=== PATIENT | female | born 1995 | race Caucasian/White ===

== ENCOUNTER 2016-12-08 14:11 | Emergency (ER) | payer BC, OTHER ==
--- NOTE | 2016-12-08 14:56 | ED ---
Abdominal Pain HPI - General Chief Complaint: Abdominal Pain Stated Complaint: Rash/arm Time Seen by Provider: 12/08/16 14:19 Source: patient Mode of arrival: ambulatory Limitations: no limitations - History of Present Illness Initial Comments: This 21-year-old white female presents with a complaint of some bilateral lower pelvic pain. She states that this is been present for approximately 10 days. The severity is minimal. She does have a history of ovarian cysts and this is somewhat similar. She denies any urinary frequency urgency or dysuria. She denies any nausea vomiting diarrhea constipation. She is unsure if she is . She also complains of a rash present to her bilateral arms and bilateral legs. It is a pruritic slightly raised minimally erythematous rash. She states that no one else in her household has this. She is tried some lotion with limited relief. No other complaints or modifying factors. - Related Data Previous Rx's Medication Instructions Recorded Permethrin 1% Creme Rinse [Nix 30 ml TOPICAL ONCE #60 ml 12/08/16 Creme Rinse] predniSONE 20 mg PO BID #10 tab 12/08/16 Allergies Allergy/AdvReac Type Severity Reaction Status Date / Time No Known Allergies Allergy Verified 12/08/16 14:42 Review of Systems ROS Statement: Those systems with pertinent positive or pertinent negative responses have been documented in the HPI. ROS Other: All systems not noted in ROS Statement are negative. Past Medical History Past Medical History: No Reported History Additional Past Medical History / Comment(s): Obstetric history: First was a vaginal delivery at 32 weeks, she was 2#7oz. This is her second and she had care with [facility] since 9 weeks. She was using progesterone suppositories for the history of delivery and seeing [facility]. BPPs weekly, NSTs twice weekly, and growth USs every 3 -4 weeks. The growth has recently fallen off the curve and is now IUGR. [facility] rec delivery at 37 weeks. AB neg, abs neg, Rub Imm, RPR NR, Hep B neg. GBS neg. normal 1hr GTT. She did have celestone at 25 weeks and Rhogam on 08-16-14 at 28 weeks. History of Any Multi-Drug Resistant Organisms: None Reported Past Surgical History: No Surgical Hx Reported Past Anesthesia/Blood Transfusion Reactions: No Reported Reaction Past Psychological History: No Psychological Hx Reported Smoking Status: Current every day smoker Past Alcohol Use History: None Reported Past Drug Use History: None Reported - Past Family History Father Family Medical History: No Reported History General Exam - General Exam Comments Initial Comments: GENERAL: The patient is well nourished and well hydrated. VITAL SIGNS: Heart rate, blood pressure, respiratory rate reviewed as recorded in nurse's notes. EYES: Pupils are round and reactive. Extraocular movements are intact. No conjunctival / lid redness or swelling. ENT: No external evidence of injury, swelling, or ecchymosis. Airway is patent. Throat is clear. NECK: Nontender. No swelling or evidence of injury. No subcutaneous emphysema. Trachea is midline. No thyroid mass. HEART: Regular rate and rhythm. Good peripheral pulses. LUNGS/CHEST: Breath sounds clear and equal bilaterally. No rales, rhonchi, or wheezes. No ecchymosis, subcutaneous emphysema, or tenderness. ABDOMEN: There is scant bilateral lower pelvic tenderness noted. No palpable masses or organomegaly. No peritoneal signs. No abdominal wall swelling or ecchymosis. EXTREMITIES: No extremity tenderness. Normal muscle tone and function. No thoracolumbar tenderness. NEUROLOGIC: Sensation is grossly intact. Cranial nerve exam reveals face is symmetrical, tongue is midline, speech is clear. SKIN: There are multiple slight raised minimally erythematous scabbed lesions noted throughout the upper extremities more so than the lower extremities. These are consistent with some type of insect bite. PSYCHIATRIC: Alert and oriented. Appropriate behavior and judgment. Limitations: no limitations Course Vital Signs 12/08/16 12/08/16 14:21 15:29 Temperature 98.1 F 98.7 F Pulse Rate 81 95 Respiratory 18 18 Rate Blood Pressure 119/71 114/59 O2 Sat by Pulse 99 99 Oximetry Medical Decision Making - Medical Decision Making The patient was seen and examined. All diagnostics were reviewed. The laboratory was all essentially within normal limits. The is negative. The urinalysis does not show any acute processes. The pelvic ultrasound is essentially within normal limits. The possibility of some slight follicles on the ovaries could potentially be causing her minimal pain. The rash looks as though it is some type of insect bite or manifestation. It is felt as though she benefit from the following disposition and she leaves in no distress. - Lab Data Result diagrams: 12/08/16 14:56 12/08/16 14:56 Lab Results 12/08/16 12/08/1617 Range/Units 14:56 14:56 14:56 WBC 6.2 (3.8-10.6) k/uL RBC 4.66 (3.80-5.40) m/uL Hgb 14.8 (11.4-16.0) gm/dL Hct 41.8 (34.0-46.0) % MCV 89.7 (80.0-100.0) fL MCH 31.7 (25.0-35.0) pg MCHC 35.4 (31.0-37.0) g/dL RDW 12.3 (11.5-15.5) % Plt Count 169 (150-450) k/uL Neutrophils % 57 % Lymphocytes % 33 % Monocytes % 4 % Eosinophils % 2 % Basophils % 1 % Neutrophils # 3.5 (1.3-7.7) k/uL Lymphocytes # 2.1 (1.0-4.8) k/uL Monocytes # 0.2 (0-1.0) k/uL Eosinophils # 0.1 (0-0.7) k/uL Basophils # 0.1 (0-0.2) k/uL Sodium 140 (137-145) mmol/L Potassium 4.1 (3.5-5.1) mmol/L Chloride 107 (98-107) mmol/L Carbon Dioxide 24 (22-30) mmol/L Anion Gap 9 mmol/L BUN 8 (7-17) mg/dL Creatinine 0.62 (0.52-1.04) mg/dL Est GFR (MDRD) Af Amer >60 (>60 ml/min/1.73 sqM) Est GFR (MDRD) Non-Af >60 (>60 ml/min/1.73 sqM) Glucose 90 (74-99) mg/dL Calcium 8.7 (8.4-10.2) mg/dL Total Bilirubin 0.6 (0.2-1.3) mg/dL AST 39 H (14-36) U/L ALT 52 (9-52) U/L Alkaline Phosphatase 62 (38-126) U/L Total Protein 6.8 (6.3-8.2) g/dL Albumin 4.1 (3.5-5.0) g/dL Urine Color Light Yellow Urine Appearance Clear (Clear) Urine pH 5.0 (5.0-8.0) Ur Specific [place] 1.008 (1.001-1.035) Urine Protein Negative (Negative) Urine Glucose (UA) Negative (Negative) Urine Ketones Negative (Negative) Urine Blood Negative (Negative) Urine Nitrite Negative (Negative) Urine Bilirubin Negative (Negative) Urine Urobilinogen <2.0 (<2.0) mg/dL Ur Leukocyte Esterase Trace H (Negative) Urine RBC <1 (0-5) /hpf Urine WBC 1 (0-5) /hpf Ur Squamous Epith Cells 2 (0-4) /hpf Urine Bacteria Rare H (None) /hpf Urine Mucus Rare H (None) /hpf Urine HCG, Qual (Not Detectd) 12/08/16 Range/Units 14:56 WBC (3.8-10.6) k/uL RBC (3.80-5.40) m/uL Hgb (11.4-16.0) gm/dL Hct (34.0-46.0) % MCV (80.0-100.0) fL MCH (25.0-35.0) pg MCHC (31.0-37.0) g/dL RDW (11.5-15.5) % Plt Count (150-450) k/uL Neutrophils % % Lymphocytes % % Monocytes % % Eosinophils % % Basophils % % Neutrophils # (1.3-7.7) k/uL Lymphocytes # (1.0-4.8) k/uL Monocytes # (0-1.0) k/uL Eosinophils # (0-0.7) k/uL Basophils # (0-0.2) k/uL Sodium (137-145) mmol/L Potassium (3.5-5.1) mmol/L Chloride (98-107) mmol/L Carbon Dioxide (22-30) mmol/L Anion Gap mmol/L BUN (7-17) mg/dL Creatinine (0.52-1.04) mg/dL Est GFR (MDRD) Af Amer (>60 ml/min/1.73 sqM) Est GFR (MDRD) Non-Af (>60 ml/min/1.73 sqM) Glucose (74-99) mg/dL Calcium (8.4-10.2) mg/dL Total Bilirubin (0.2-1.3) mg/dL AST (14-36) U/L ALT (9-52) U/L Alkaline Phosphatase (38-126) U/L Total Protein (6.3-8.2) g/dL Albumin (3.5-5.0) g/dL Urine Color Urine Appearance (Clear) Urine pH (5.0-8.0) Ur Specific [place] (1.001-1.035) Urine Protein (Negative) Urine Glucose (UA) (Negative) Urine Ketones (Negative) Urine Blood (Negative) Urine Nitrite (Negative) Urine Bilirubin (Negative) Urine Urobilinogen (<2.0) mg/dL Ur Leukocyte Esterase (Negative) Urine RBC (0-5) /hpf Urine WBC (0-5) /hpf Ur Squamous Epith Cells (0-4) /hpf Urine Bacteria (None) /hpf Urine Mucus (None) /hpf Urine HCG, Qual Not Detected (Not Detectd) Disposition Clinical Impression: Pelvic pain, Rash Disposition: HOME SELF-CARE Condition: Good Instructions: Insect Bite or Sting (ED), Pelvic Pain in Women (ED) Additional Instructions: Please use Benadryl [id number] medication if needed for itching. Please use Tylenol and/or Motrin if needed for pain. Prescriptions: Permethrin 1% Creme Rinse [Nix Creme Rinse] 30 ml TOPICAL ONCE #60 ml predniSONE 20 mg PO BID #10 tab Referrals: Manfred Moody MD [Primary Care Provider] - 1-2 days Time of Disposition: 16:21
[2016-12-08 15:08] LABS: Basophils # (A) 0.1 k/uL (0-0.2); Basophils % (A) 1 %; CH 30.5; CHCM 34.1; Eosinophils # (A) 0.1 k/uL (0-0.7); Eosinophils % (A) 2 %; HCT 41.8 % (34.0-46.0); HGB 14.8 gm/dL (11.4-16.0); Luc # (Auto) 0.19; Luc % (Auto) 3; Lymphocytes # (A) 2.1 k/uL (1.0-4.8); Lymphocytes % (A) 33 %; MCH 31.7 pg (25.0-35.0); MCHC 35.4 g/dL (31.0-37.0); MCV 89.7 fL (80.0-100.0); Monocytes # (A) 0.2 k/uL (0-1.0); Monocytes % (A) 4 %; Neutrophils # (A) 3.5 k/uL (1.3-7.7); Neutrophils % (A) 57 %; RBC 4.66 m/uL (3.80-5.40); RDW 12.3 % (11.5-15.5); WBC 6.2 k/uL (3.8-10.6); WBC (Perox) 6.53
[2016-12-08 15:11] LABS: Appearance,Urine Clear (Clear); Bacteria,Urine Rare /hpf; Bilirubin,Urine Negative (Negative); Glucose,Urine (UA) Negative (Negative); Ketones,Urine Negative (Negative); Leukocyte Esterase,Urine Trace (Negative); Mucus,Urine Rare /hpf; Nitrite,Urine Negative (Negative); Particle Count 1992; Protein,Urine Negative (Negative); RBC,Urine <1 /hpf (0-5); Specific Gravity,Urine 1.008 (1.001-1.035); Squamous Epithelial Cell,Urine 2 /hpf (0-4); UA Billing (MACRO vs. MICRO) MICRO; Urobilinogen,Urine <2.0 mg/dL (<2.0); WBC,Urine 1 /hpf (0-5)
[2016-12-08 15:17] LABS: ALT 52 U/L (9-52); AST 39 U/L (14-36); Alkaline Phosphatase 62 U/L (38-126); Anion Gap 9 mmol/L; Blood Urea Nitrogen 8 mg/dL (7-17); Calcium 8.7 mg/dL (8.4-10.2); Carbon Dioxide 24 mmol/L (22-30); Chloride 107 mmol/L (98-107); Glucose 90 mg/dL (74-99); Non-African American GFR(MDRD) >60 (>60 ml/min/1.73 sqM); Potassium 4.1 mmol/L (3.5-5.1); Sodium 140 mmol/L (137-145); Total Bilirubin 0.6 mg/dL (0.2-1.3); Total Protein 6.8 g/dL (6.3-8.2)
--- NOTE | 2016-12-08 15:45 | US ---
EXAMINATION TYPE: US transvaginal DATE OF EXAM: 12/08/2016 COMPARISON: US 2016 CLINICAL HISTORY: Pain lower abd. TECHNIQUE: Transvaginal (TV) Date of LMP: 11/06/2016 EXAM MEASUREMENTS: Uterus: 6.9 x 6.0 x 4.7 cm Endometrial Stripe: 0.6 cm Right Ovary: 2.7 x 1.6 x 1.4 cm Left Ovary: 3.7 x 2.5 x 2.2 cm 1. Uterus: Retroverted 2. Endometrium: wnl 3. Right Ovary: wnl with follicles. 4. Left Ovary: wnl with follicles Spectral, color and waveform doppler imaging shows good arterial and venous flow within the ovaries ; there is no evidence for ovarian torsion. 5. Bilateral Adnexa: wnl 6. Posterior cul-de-sac: free fluid noted IMPRESSION: 1. Normal pelvic ultrasound. Some free fluid which can be physiologic within the pelvis.
[2016-12-08 16:34] VITALS: BP 115/67; PULSE 73; RESP 20; TEMP 98.1
== END 2016-12-08 16:34 | disposition home or self-care (01) ==
LOC: EC 14:11
DX: R10.2 Pelvic and perineal pain (principal); R21 Rash and other nonspecific skin eruption; F17.200 Nicotine dependence, unspecified, uncomplicated
CPT/HCPCS: 36415; 76830; 80053; 81001; 81025; 85025; 93975; 99284

== ENCOUNTER 2017-04-24 10:36 | Emergency (ER) | payer BC, OTHER ==
--- NOTE | 2017-04-24 10:48 | ED ---
General Adult HPI - General Chief complaint: Abdominal Pain Stated complaint: Abd Pain. 9 wks preg Source: patient Mode of arrival: ambulatory Limitations: no limitations - History of Present Illness Initial comments: Quin is a 22yo female who is currently approximately 9wks with a single intrauterine confirmed on ultrasound at her OBs office. Patient reports that her first child was premature, her second was considered high risk due to her previous premature delivery. Reports that she has already established OB care during this , she has seen Dr. Bustillo, she had an ultrasound which confirmed a single intrauterine . Patient reports that yesterday evening she began experiencing pelvic cramping which she describes as similar to labor pains. She reports that these pains were so severe throughout the night that they woke her from sleep. Pains persisted throughout the night, this morning she called her OB who advised her to come to the emergency department for evaluation. Patient denies any vaginal bleeding or passage of products of conception or blood clots. Patient denies any fevers, chills, dysuria, constipation or diarrhea. Patient does admit to nausea and a single episode of nonbloody nonbilious emesis this morning, however this is not atypical for her during this she has been experiencing morning sickness with vomiting daily. - Related Data Home Medications Medication Instructions Recorded Confirmed Syq-Qxiu-Uayim Acid 1 cap PO HS 04/24/17 04/24/17 [-U Capsule (formulary)] Previous Rx's Medication Instructions Recorded Cephalexin [Keflex] 500 mg PO Q6HR 7 Days #28 cap 04/24/17 Allergies Allergy/AdvReac Type Severity Reaction Status Date / Time No Known Allergies Allergy Verified 04/24/17 10:48 Review of Systems ROS Statement: Those systems with pertinent positive or pertinent negative responses have been documented in the HPI. ROS Other: All systems not noted in ROS Statement are negative. Constitutional: Denies: fever, chills ENT: Denies: throat pain Respiratory: Denies: cough Cardiovascular: Denies: chest pain, palpitations Endocrine: Reports: fatigue Gastrointestinal: Reports: nausea, vomiting. Denies: diarrhea, constipation, hematemesis, melena, hematochezia Genitourinary: Denies: urgency, dysuria, frequency, hematuria, discharge Musculoskeletal: Denies: back pain Skin: Denies: rash, lesions Neurological: Denies: headache, weakness Psychiatric: Denies: anxiety Hematological/Lymphatic: Denies: easy bleeding, easy bruising Past Medical History Past Medical History: No Reported History Additional Past Medical History / Comment(s): Obstetric history: First was a vaginal delivery at 32 weeks, she was 2#7oz. This is her second and she had care with me since 9 weeks. She was using progesterone suppositories for the history of delivery and seeing [facility]. BPPs weekly, NSTs twice weekly, and growth USs every 3 -4 weeks. The growth has recently fallen off the curve and is now IUGR. [facility] rec delivery at 37 weeks. AB neg, abs neg, Rub Imm, RPR NR, Hep B neg. GBS neg. normal 1hr GTT. She did have celestone at 25 weeks and Rhogam on 08-16-14 at 28 weeks. History of Any Multi-Drug Resistant Organisms: None Reported Past Surgical History: No Surgical Hx Reported Past Anesthesia/Blood Transfusion Reactions: No Reported Reaction Past Psychological History: No Psychological Hx Reported Smoking Status: Current every day smoker Past Alcohol Use History: None Reported Past Drug Use History: None Reported - Past Family History Father Family Medical History: No Reported History General Exam Limitations: no limitations General appearance: alert, in no apparent distress Head exam: Present: atraumatic, normocephalic Eye exam: Present: normal appearance, PERRL ENT exam: Present: normal exam Neck exam: Present: normal inspection Respiratory exam: Present: normal lung sounds bilaterally. Absent: respiratory distress Cardiovascular Exam: Present: normal rhythm, tachycardia GI/Abdominal exam: Present: soft, normal bowel sounds. Absent: distended, tenderness, guarding, rebound, rigid Rectal exam: Present: deferred Extremities exam: Present: normal inspection, full ROM Back exam: Present: normal inspection, full ROM Neurological exam: Present: alert, oriented X3 Psychiatric exam: Present: normal affect, normal mood Skin exam: Present: warm, dry, intact Course Vital Signs 04/24/17 04/24/17 10:38 12:48 Temperature 97.6 F 98.7 F Pulse Rate 107 H 79 Respiratory 16 17 Rate Blood Pressure 122/70 104/56 O2 Sat by Pulse 100 100 Oximetry - Reevaluation(s) Reevaluation #1: Patient reevaluated, resting comfortably in bed after ultrasound. 04/24/17 12:26 Medical Decision Making - Medical Decision Making Patient was seen and evaluated, history is obtained from the patient Labs and imaging were ordered Patient has arty been evaluated by OB in this and has a confirms single intrauterine . She has new onset of cramping without vaginal discharge or vaginal bleeding. Patient has no new sexual partners no concern for sexual transmitted infections. Urinalysis reveals likely contamination, however there are leukocyte esterase noted, we'll culture and plan to treat due to the patient being Ultrasound reveals a single live intrauterine at 9 weeks and 6 days consistent with patient's expectations, there is noted to be 2 small subchorionic hematomas. These results were discussed with the patient who expressed understanding and stated that she will maintain pelvic rest and follow up with her OB. I offered the patient a pelvic exam to evaluate her cervix or evaluate for any vaginal bleeding or discharge, patient states that she doesn't believe she needs this at this time she has no concerns and does not have any discharge or bleeding. All questions pertaining to care were answered to the best of my ability and the patient was discharged home with diagnosis of pelvic pain in and urinary tract infection, she was prescribed Keflex 504 times daily for 7 days. - Lab Data Result diagrams: 04/24/17 11:09 04/24/17 11:09 Lab Results 04/24/17 04/24/17 04/24/17 Range/Units 11:09 11:09 11:09 WBC 10.7 H (3.8-10.6) k/uL RBC 4.62 (3.80-5.40) m/uL Hgb 14.1 (11.4-16.0) gm/dL Hct 41.6 (34.0-46.0) % MCV 90.1 (80.0-100.0) fL MCH 30.5 (25.0-35.0) pg MCHC 33.9 (31.0-37.0) g/dL RDW 11.9 (11.5-15.5) % Plt Count 181 (150-450) k/uL Neutrophils % 84 % Lymphocytes % 11 % Monocytes % 4 % Eosinophils % 1 % Basophils % 0 % Neutrophils # 8.9 H (1.3-7.7) k/uL Lymphocytes # 1.2 (1.0-4.8) k/uL Monocytes # 0.4 (0-1.0) k/uL Eosinophils # 0.1 (0-0.7) k/uL Basophils # 0.0 (0-0.2) k/uL Sodium 136 L (137-145) mmol/L Potassium 3.7 (3.5-5.1) mmol/L Chloride 103 (98-107) mmol/L Carbon Dioxide 23 (22-30) mmol/L Anion Gap 10 mmol/L BUN 7 (7-17) mg/dL Creatinine 0.55 (0.52-1.04) mg/dL Est GFR (MDRD) Af Amer >60 (>60 ml/min/1.73 sqM) Est GFR (MDRD) Non-Af >60 (>60 ml/min/1.73 sqM) Glucose 88 (74-99) mg/dL Calcium 9.2 (8.4-10.2) mg/dL HCG, Quant 64327.5 mIU/mL Urine Color Yellow Urine Appearance Cloudy H (Clear) Urine pH 6.0 (5.0-8.0) Ur Specific [place] 1.018 (1.001-1.035) Urine Protein Trace H (Negative) Urine Glucose (UA) Negative (Negative) Urine Ketones Trace H (Negative) Urine Blood Negative (Negative) Urine Nitrite Negative (Negative) Urine Bilirubin Negative (Negative) Urine Urobilinogen <2.0 (<2.0) mg/dL Ur Leukocyte Esterase Trace H (Negative) Urine WBC 2 (0-5) /hpf Ur Squamous Epith Cells 5 H (0-4) /hpf Urine Bacteria Rare H (None) /hpf Urine Mucus Few H (None) /hpf Blood Type Blood Type Recheck Antibody Screen Spec Expiration Date 04/24/17 Range/Units 11:09 WBC (3.8-10.6) k/uL RBC (3.80-5.40) m/uL Hgb (11.4-16.0) gm/dL Hct (34.0-46.0) % MCV (80.0-100.0) fL MCH (25.0-35.0) pg MCHC (31.0-37.0) g/dL RDW (11.5-15.5) % Plt Count (150-450) k/uL Neutrophils % % Lymphocytes % % Monocytes % % Eosinophils % % Basophils % % Neutrophils # (1.3-7.7) k/uL Lymphocytes # (1.0-4.8) k/uL Monocytes # (0-1.0) k/uL Eosinophils # (0-0.7) k/uL Basophils # (0-0.2) k/uL Sodium (137-145) mmol/L Potassium (3.5-5.1) mmol/L Chloride (98-107) mmol/L Carbon Dioxide (22-30) mmol/L Anion Gap mmol/L BUN (7-17) mg/dL Creatinine (0.52-1.04) mg/dL Est GFR (MDRD) Af Amer (>60 ml/min/1.73 sqM) Est GFR (MDRD) Non-Af (>60 ml/min/1.73 sqM) Glucose (74-99) mg/dL Calcium (8.4-10.2) mg/dL HCG, Quant mIU/mL Urine Color Urine Appearance (Clear) Urine pH (5.0-8.0) Ur Specific [place] (1.001-1.035) Urine Protein (Negative) Urine Glucose (UA) (Negative) Urine Ketones (Negative) Urine Blood (Negative) Urine Nitrite (Negative) Urine Bilirubin (Negative) Urine Urobilinogen (<2.0) mg/dL Ur Leukocyte Esterase (Negative) Urine WBC (0-5) /hpf Ur Squamous Epith Cells (0-4) /hpf Urine Bacteria (None) /hpf Urine Mucus (None) /hpf Blood Type AB Negative Blood Type Recheck No Antibody Screen NEGATIVE Spec Expiration Date 04/27/2017 - 2308 Disposition Clinical Impression: Pelvic pain affecting , Bacteria in urine Disposition: HOME SELF-CARE Condition: Good Instructions: Pelvic Pain in Women (ED) Additional Instructions: Call your OB today to establish follow up next week for re-evaluation, return to the ED if you develop any worsening pain, fever, chills, vaginal bleeding, lightheadedness, shortness of breath, chest pain or any symptoms you find concerning. Prescriptions: Cephalexin [Keflex] 500 mg PO Q6HR 7 Days #28 cap Referrals: Manfred Moody MD [Primary Care Provider] - 1-2 days
[2017-04-24 11:23] LABS: Basophils % (A) 0 %; CH 31.4; CHCM 34.9; Eosinophils # (A) 0.1 k/uL (0-0.7); Eosinophils % (A) 1 %; HCT 41.6 % (34.0-46.0); HDW 2.38; HGB 14.1 gm/dL (11.4-16.0); Luc # (Auto) 0.07; Luc % (Auto) 1; Lymphocytes # (A) 1.2 k/uL (1.0-4.8); Lymphocytes % (A) 11 %; MCH 30.5 pg (25.0-35.0); MCHC 33.9 g/dL (31.0-37.0); MCV 90.1 fL (80.0-100.0); Monocytes # (A) 0.4 k/uL (0-1.0); Monocytes % (A) 4 %; Neutrophils # (A) 8.9 k/uL (1.3-7.7); Neutrophils % (A) 84 %; RBC 4.62 m/uL (3.80-5.40); RDW 11.9 % (11.5-15.5); WBC 10.7 k/uL (3.8-10.6); WBC (Perox) 10.61
[2017-04-24 11:29] LABS: Appearance,Urine Cloudy (Clear); Bacteria,Urine Rare /hpf; Bilirubin,Urine Negative (Negative); Glucose,Urine (UA) Negative (Negative); Ketones,Urine Trace (Negative); Leukocyte Esterase,Urine Trace (Negative); Mucus,Urine Few /hpf; Nitrite,Urine Negative (Negative); Particle Count 7115; Protein,Urine Trace (Negative); Specific Gravity,Urine 1.018 (1.001-1.035); Squamous Epithelial Cell,Urine 5 /hpf (0-4); UA Billing (MACRO vs. MICRO) MICRO; Urobilinogen,Urine <2.0 mg/dL (<2.0); WBC,Urine 2 /hpf (0-5)
[2017-04-24 11:32] LABS: Anion Gap 10 mmol/L; Blood Urea Nitrogen 7 mg/dL (7-17); Calcium 9.2 mg/dL (8.4-10.2); Carbon Dioxide 23 mmol/L (22-30); Chloride 103 mmol/L (98-107); Glucose 88 mg/dL (74-99); Non-African American GFR(MDRD) >60 (>60 ml/min/1.73 sqM); Potassium 3.7 mmol/L (3.5-5.1); Sodium 136 mmol/L (137-145)
--- NOTE | 2017-04-24 12:17 | US ---
EXAMINATION TYPE: US OB <= 14 wk fetus DATE OF EXAM: 04/24/2017 COMPARISON: NONE CLINICAL HISTORY: Pain. EXAM PERFORMED: Transabdominal (TA) EXAM MEASUREMENTS: GESTATIONAL AGE / DATING Physician Established: (9 weeks/6 days) EDC: 11/21/17 Dates by LMP: patient unsure Dates by First Scan: No previous available Dates by Current Scan for: (9 weeks/6 days) EDC: 11/21/17 MATERNAL ANATOMY Uterus: 10.4 x 7.4 x 8.4 Right Ovary: 2.2 x 1.1 x 1.0cm Left Ovary: 2.3 x 1.4 x 1.5cm Post CDS / Adnexa: wnl Presence of free fluid: no Presence of subchorionic bleed: 1.) 0.7 x 0.7 x 0.6cm, 2.) 0.8 x 0.8 x 0.6cm GESTATION / SURVEY CRL: 3.0 (9 weeks/6 days) Yolk Sac (normal less than 6mm): 2mm Heart Rate: 174 bpm Rhythm: Normal IUP: Viable IUP Date of LMP: patient unsure Beta HcG (if available): Not available at this time IMPRESSION: 1. Two subcentimeter areas of subchorionic hemorrhage measuring up to 8 mm together occupying approxi mately 25% of the gestational sac diameter. 2. Single live intrauterine with a heart rate of 174 bpm and sonographic age of 9 weeks and 6 days and estimated date of delivery of 11/21/2017 concordant with physician established dates.
[2017-04-24 12:48] VITALS: BP 104/56; PULSE 79; RESP 17; TEMP 98.7
== END 2017-04-24 13:04 | disposition home or self-care (01) ==
LOC: EC 10:36
DX: O99.89 Other specified diseases and conditions complicating pregnancy, childbirth and the puerperium (principal); R10.2 Pelvic and perineal pain; R82.71 Bacteriuria; O99.331 Smoking (tobacco) complicating pregnancy, first trimester; F17.200 Nicotine dependence, unspecified, uncomplicated; Z3A.09 9 weeks gestation of pregnancy; Z79.899 Other long term (current) drug therapy
CPT/HCPCS: 36415; 76801; 80048; 81001; 84702; 85025; 86850; 86900; 86901; 87086; 99284

== ENCOUNTER 2017-08-08 12:51 | Outpatient (CLI) | payer BC, OTHER ==
[2017-08-08 13:22] VITALS: BP 116/59; PULSE 100; RESP 16; TEMP 99.6
[2017-08-08] MEDS ORDERED: BETAMET ACET-BETAMETH SOD PHOS 6 MG/ML VIAL IM ONE (14:00)
--- NOTE | 2017-08-18 08:44 | P.MSEPDOC ---
Presenting Problems - Arrival Data Date of Arrival on Unit: 08/08/17 Time of Arrival on Unit: 13:00 Mode of Transport: Ambulatory - Complaint OB-Reason for Admission/Chief Complaint: NST, Celestone Injection Comment: repeat celestone. from dr santos. Medical History - Information : 3 Para: 2 Term: 0 : 2 Abortions: Spontaneous or Elective: 0 Number of Living Children: 2 - Gestational Age Gestational Age by ZANE (wks/days): 25 Weeks and 0 Days - History Complications: Other Comment: hx of labor Review of Systems - Review of Systems Constitutional: No problems Breast: No problems ENT: No problems Cardiovascular: No problems Respiratory: No problems Gastrointestinal: No problems Genitourinary: No problems Musculoskeletal: No problems Neurological: No problems Skin: No problems Vital Signs - Temperature Temperature: 99.6 F Temperature Source: Tympanic - Pulse Right Radial Pulse Rate: 100 Pulse Assessment Method: Automatic Cuff - Respirations Respiratory Rate: 16 Oxygen Delivery Method: Room Air O2 Sat by Pulse Oximetry: 97 - Blood Pressure Right Arm Blood Pressure: 116/59 Blood Pressure Mean: 78 Blood Pressure Source: Automatic Cuff Medical Screen Scoring (Pre) - Cervical Exam Dilation: Exam Deferred - Uterine Contractions Frequency: N/A Duration: N/A Intensity: N/A - Maternal Vital Signs Maternal Temperature: N/A Maternal Blood Pressure: N/A Signs of Preeclampsia: N/A Maternal Respirations: N/A - Pain Assessment Pain Scale Used: Numeric (1 - 10) Pain Intensity: 0 - Maternal Trauma Maternal Trauma: N/A - Assessment Heart Rate - NICHD Category: Category I (Normal) = 0 NST: Reactive Position: N/A - Total Score Total Score (Pre): 0 - Level of Risk Level of Risk: N/A Physician Notification (Pre) - Physician Notified Physician Notified Date: 08/08/17 Physician Notified Time: 13:20 Physician/Practitioner Notifed:: cesilia Spoke With: cesilia New Order Received: Yes (october discharge home.) - Notification Comment Comment: to see dr pike on for followup appt Disposition - Disposition OB Disposition: Discharge to home Discharge Date: 08/08/17 Discharge Time: 13:35 I agree with the RN Medical Screening Exam: Yes Risk & Benefit of care provided described in d/c instruction: Yes Diagnosis: RELATED CONDITIONS, UNSPECIFIED, SECOND TRIMESTER
== END 2017-08-08 13:35 | disposition home or self-care (01) ==
LOC: FBPOP 12:51
PROVIDERS: ATTEND Obstetrics & Gynecology
DX: O26.92 Pregnancy related conditions, unspecified, second trimester (principal); Z3A.25 25 weeks gestation of pregnancy
CPT/HCPCS: 99213; 96372; J0702

== ENCOUNTER 2017-08-14 13:26 | Outpatient (CLI) | payer BC, OTHER ==
[2017-08-14 14:32] VITALS: BP 114/60; PULSE 97; RESP 18; TEMP 98.4
[2017-08-14] MEDS ORDERED: MAGNESIUM SULFATE-WATER PMX 4 GM in WATER FOR INJECTION 50 50ML.BAG IVPB ONE (16:25)
[2017-08-14] MEDS ORDERED: MAGNESIUM SULFATE-WATER PMX 20 GM in WATER FOR INJECTION 1 500ML.BAG IV SCH (16:30)
--- NOTE | 2017-08-14 16:33 | P.HPOB ---
History of Present Illness H&P Date: 08/14/17 Chief Complaint: contractions/labor 22 year old presents at 25 weeks 6 days with contractions and mucus discharge. Her cervix was closed last week and now is 1-2/90%. She is feeling some tightening and having contractions every 2-4 minutes. heart tones are in the 130's. FFN is positive. She did have BMZ x2 one week ago. Review of Systems All systems: negative Constitutional: Denies chills, Denies fever Eyes: denies blurred vision, denies pain Ears, nose, mouth and throat: Denies headache, Denies sore throat Cardiovascular: Denies chest pain, Denies shortness of breath Respiratory: Denies cough Gastrointestinal: Denies abdominal pain, Denies diarrhea, Denies nausea, Denies vomiting Genitourinary: Denies dysuria, Denies hematuria Musculoskeletal: Denies myalgias Integumentary: Denies pruritus, Denies rash Neurological: Denies numbness, Denies weakness Psychiatric: Denies anxiety, Denies depression Endocrine: Denies fatigue, Denies weight change Past Medical History Past Medical History: No Reported History Additional Past Medical History / Comment(s): Obstetric history: First was a vaginal delivery at 32 weeks, she was 2#7oz. Second she was delivered at 37 weeks for IUGR. This is her third . She is supposed to be getting progesterone injections weekly and missed this weeks dose. She did receive BMZ last week. History of Any Multi-Drug Resistant Organisms: None Reported Past Surgical History: No Surgical Hx Reported Past Anesthesia/Blood Transfusion Reactions: No Reported Reaction Smoking Status: Current every day smoker - Past Family History Father Family Medical History: No Reported History Medications and Allergies Home Medications Medication Instructions Recorded Confirmed Type Tmg-Umyi-Woxym Acid 1 cap PO HS 04/24/17 08/14/17 History [-U Capsule (formulary)] Allergies Allergy/AdvReac Type Severity Reaction Status Date / Time No Known Allergies Allergy Verified 08/08/17 13:08 Exam Osteopathic Statement: *. No significant issues noted on an osteopathic structural exam other than those noted in the History and Physical/Consult. - Vital Signs Vital signs: Vital Signs Temp Pulse Resp BP Pulse Ox 08/14/17 14:18 98.4 F 97 18 114/60 97 Intake and Output 08/14/17 08/14/17 08/14/17 06:59 14:59 22:59 Other: Weight 62.596 kg Patient Weight 08/15/17 06:59 Weight 62.596 kg Heart: RRR Lungs: CTAB Abdomen: soft, nontender Extremeties: neg bettye's Assessment and Plan (1) labor Current Visit: Yes Status: Acute Code(s): O60.00 - LABOR WITHOUT DELIVERY, UNSPECIFIED TRIMESTER SNOMED Code(s): 4285580 (2) History of delivery Current Visit: Yes Status: Acute Code(s): Z87.51 - PERSONAL HISTORY OF PRE- TERM LABOR SNOMED Code(s): 614305664 Plan: 1. magnesium sulfate 2. antibiotics 3. transfer to [facility] in case of delivery where they have an NICU to care for the
[2017-08-14] MEDS ORDERED: AMPICILLIN 2,000 MG in SODIUM CHLORIDE 0.9% 100 ML IVPB STA (16:39)
[2017-08-14] MEDS ORDERED: LACTATED RINGERS 1,000 ML IV SCH (16:45)
== END 2017-08-14 17:33 | disposition other institution (70) ==
LOC: FBPOP 13:26
PROVIDERS: ATTEND Obstetrics & Gynecology
DX: O60.02 Preterm labor without delivery, second trimester (principal); O99.332 Smoking (tobacco) complicating pregnancy, second trimester; Z3A.25 25 weeks gestation of pregnancy; Z87.51 Personal history of pre-term labor
CPT/HCPCS: 99215; 96365; 96366; 96367; 84112; 82731; J3475 ×2; J0290

== ENCOUNTER 2017-10-21 21:45 | Outpatient (CLI) | payer BC, OTHER ==
[2017-10-21 23:27] VITALS: BP 110/66; PULSE 92; RESP 16; TEMP 97.7
--- NOTE | 2017-10-30 07:57 | P.MSEPDOC ---
Presenting Problems - Arrival Data Date of Arrival on Unit: 10/21/17 Time of Arrival on Unit: 21:45 Mode of Transport: Ambulatory - Complaint OB-Reason for Admission/Chief Complaint: Possible Onset of Labor Comment: c/o cramping starting around 0200 this morning and continued to get worse. Medical History - Information : 3 Para: 2 Term: 0 : 2 Abortions: Spontaneous or Elective: 0 Number of Living Children: 2 - Gestational Age Gestational Age by ZANE (wks/days): 35 Weeks and 4 Days Review of Systems - Review of Systems Constitutional: No problems Breast: No problems ENT: No problems Cardiovascular: No problems Respiratory: No problems Gastrointestinal: No problems Genitourinary: No problems Musculoskeletal: No problems Neurological: No problems Skin: No problems Vital Signs - Temperature Temperature: 97.7 F Temperature Source: Temporal Artery Scan - Pulse Right Pulse Rate: 92 Pulse Assessment Method: Pulse Oximetry - Respirations Respiratory Rate: 16 O2 Sat by Pulse Oximetry: 97 - Blood Pressure Right Arm Blood Pressure: 110/66 Blood Pressure Mean: 80 Blood Pressure Source: Automatic Cuff Medical Screen Scoring (Pre) - Cervical Exam Dilation: 1-3 cm = 1 Effacement: More than 50% = 2 Membranes: Intact - Uterine Contractions Frequency: N/A - Maternal Vital Signs Maternal Temperature: N/A Maternal Blood Pressure: N/A Signs of Preeclampsia: N/A Maternal Respirations: N/A - Pain Assessment Pain Location and Character: Abdomen Pain Scale Used: Numeric (1 - 10) Pain Intensity: 7 Pain Management Goal: 0 Pain Description: *Acute, Cramping Pain Frequency: Intermittent Pain Duration Units: Hours Pain Behavior: Vocalization Pain Aggravating Factors: Activity Non-Pharmacological Interventions: Position/Reposition, Relaxation Technique - Maternal Trauma Maternal Trauma: N/A - Assessment Baseline FHR: 145 Heart Rate - NICHD Category: Category I (Normal) = 0 NST: Reactive Position: N/A - Total Score Total Score (Pre): 3 - Level of Risk Level of Risk: Low (0-5) Physician Notification (Pre) - Physician Notified Physician Notified Date: 10/21/17 Physician Notified Time: 22:10 Physician/Practitioner Notifed:: Dr. Buchanan Spoke With: Dr. Buchanan New Order Received: Yes (recheck in one hour.) - Notification Comment Comment: Orders to recheck pt in one hour. If not making change, pt cleared for discharge home with follow up instructions. Medical Screen Scoring (Post) - Cervical Exam Dilation: 1-3 cm = 1 Effacement: More than 50% = 2 Membranes: Intact - Uterine Contractions Frequency: N/A Duration: N/A Intensity: N/A - Maternal Vital Signs Maternal Temperature: N/A Maternal Blood Pressure: N/A Signs of Preeclampsia: N/A Maternal Respirations: N/A - Pain Assessment Pain Location and Character: Abdomen Pain Scale Used: Numeric (1 - 10) Pain Intensity: 7 Pain Management Goal: 0 Pain Description: *Acute, Cramping Pain Frequency: Intermittent Pain Duration Units: Hours Pain Behavior: Vocalization Pain Aggravating Factors: Activity Non-Pharmacological Interventions: Environmental Control, Position/Reposition, Relaxation Technique - Maternal Trauma Maternal Trauma: N/A - Assessment Heart Rate: 135 Heart Rate - NICHD Category: Category I (Normal) = 0 NST: Reactive Position: N/A Station: N/A - Total Score Total Score (Post): 3 - Post Treatment Level of Risk Post Treatment Level of Risk: Low (0-5) Physician Notification (Post) - Physician Notified Physician Notified Date: 10/21/17 Physician Notified Time: 22:10 Physician/Practitioner Notified:: Dr. Buchanan Spoke With: Dr. Buchanan New Order Received: No - Notification Comment Comment: Pt has not made chage in last hour. No contrations per toco/palpation. Pt's family member reports pt was cleaning her house earlier and lifted her mattress. Pt instructed to avoid heavy lifting while . Rest tonight and keep appointment in [place] in the morning at 0900 and in office with Keny on 10/27/2017. Pt insturcted to return if symptoms worsen or any other concerns. Pt verbalizes understanding. Disposition - Disposition OB Disposition: Discharge to home Discharge Date: 10/21/17 Discharge Time: 23:10 I agree with the RN Medical Screening Exam: Yes Risk & Benefit of care provided described in d/c instruction: Yes Diagnosis: FALSE LABOR BEFORE 37 COMPLETED WEEKS OF GEST, THIRD TRI
== END 2017-10-21 23:10 | disposition home or self-care (01) ==
LOC: FBPOP 21:45
PROVIDERS: ATTEND Obstetrics & Gynecology
DX: O47.03 False labor before 37 completed weeks of gestation, third trimester (principal); Z3A.35 35 weeks gestation of pregnancy
CPT/HCPCS: 59025; 99213

== ENCOUNTER 2017-10-26 11:12 | Inpatient (IN) | payer BC, OTHER ==
[2017-10-26 12:59] VITALS: RESP 16
--- NOTE | 2017-10-26 13:50 | US ---
EXAMINATION TYPE: US OB >= 14 wk fetus DATE OF EXAM: 10/26/2017 COMPARISON: US 04/24/2017 CLINICAL HISTORY: bleeding TECHNIQUE: Transabdominal (TA) GESTATIONAL AGE / DATING Physician Established: (36weeks/ 2 days) EDC: 11/21/17 Dates by LMP: Patient unsure Dates by First Scan: (36weeks/2 days) EDC: 11/21/17 Dates by Current Scan: (35weeks/0 days) EDC: 12/03/17 Beta HCG (if available): SURVEY IUP: Single PLACENTA: Posterior PREVIA: No Previa CYNTHIA: 11.2 Normal CERVICAL LENGTH (transabdominal: norm > 3.0cm): 3.9m ( BIOMETRY PRESENTATION: Vertex LIE: Longitudinal BPD: 8.6m 34weeks / 5 days HC: 31.2 34weeks / 6 days AC: 31.4 35weeks / 2 days FL: 7.1m 36weeks / 1 days ESTIMATED WEIGHT IN GRAMS: 2669ams ESTIMATED WEIGHT IN LBS/OZ: 5 lbs. 14oz. WEIGHT PERCENTAGE BASED ON ESTABLISHED DATES: 28.6 HC/AC: 0.99 FL/AC: 82.0 HEART RATE: 134pm RHYTHM: Normal IMPRESSION: Single viable uterine . No evidence for placenta previa or unusual collection.
[2017-10-26] MEDS ORDERED: CARBOPROST TROMETHAMINE 250 MCG/ML 1 ML AMP IM PRN (14:31)
[2017-10-26] MEDS ORDERED: OXYTOCIN 10 UNIT/ML 1 ML VIAL IM PRN (14:31)
[2017-10-26] MEDS ORDERED: LIDOCAINE 1% (PF) 10 MG/ML (30 ML SDV) SQ PRN (14:31)
[2017-10-26] MEDS ORDERED: TERBUTALINE 1 MG/ML VIAL SQ PRN (14:31)
[2017-10-26] MEDS ORDERED: METHYLERGONOVINE 0.2 MG/ML 1 ML AMP IM PRN (14:31)
[2017-10-26] MEDS ORDERED: LACTATED RINGERS 1,000 ML IV SCH (14:45)
[2017-10-26] MEDS ORDERED: BUTORPHANOL 1 MG/ML 1 ML VIAL IV PRN (15:19)
[2017-10-26 15:23] LABS: Basophils # (A) 0.1 k/uL (0-0.2); Basophils % (A) 1 %; Eosinophils # (A) 0.1 k/uL (0-0.7); Eosinophils % (A) 1 %; Lymphocytes # (A) 2.2 k/uL (1.0-4.8); Lymphocytes % (A) 19 %; MCH 30.7 pg (25.0-35.0); MCHC 34.2 g/dL (31.0-37.0); MCV 89.8 fL (80.0-100.0); Mean Platelet Volume 8.4; Monocytes # (A) 0.5 k/uL (0-1.0); Monocytes % (A) 4 %; Neutrophils # (A) 8.4 k/uL (1.3-7.7); Neutrophils % (A) 74 %; Platelet Count 169 k/uL (150-450); RBC 3.89 m/uL (3.80-5.40); RDW 12.8 % (11.5-15.5); WBC 11.3 k/uL (3.8-10.6)
[2017-10-26 15:26] VITALS: BMI 24.3
--- NOTE | 2017-10-26 15:29 | P.HPOB ---
History of Present Illness H&P Date: 10/26/17 Chief Complaint: Bleeding and contractions This is a 22-year-old female 3 para 2 with an estimated date of confinement of 11/21/2017, estimated gestational age of 36-2/7 weeks, who presents to labor and delivery after noticing a gush of blood and approximate 9: 30 AM this morning followed by contractions that have become stronger upon arrival. She continues to have some small gushes of blood. She admits to good movement. She was observed in triage and noted to make cervical change from 3-3-1/2 cm over an hour to 2 hours time. She continued to have some bleeding noted on the glove after exam. Ultrasound was performed and showed a posterior placenta with no previa noted. Fluid level was normal at 11.1. Estimated weight is 5 lbs. 12 oz. and the baby is vertex. The patient has a history during this of dilation starting at 28 weeks. She was noted to have a shortened cervix of 20 mm at 25 weeks. She did receive 2 doses of Celestone at that time. She has been getting weekly progesterone injections throughout her . Her last checked by Dr. Bustillo was a week ago and she was noted to be 2 cm/70%/-3. In light of the bleeding along with regular contractions, the decision is made to admit for labor and bleeding. labs: Hepatitis B surface antigen-negative Rubella-immune Blood type-AB- An of any screen-negative RPR-nonreactive HIV-nonreactive Hemoglobin-14.3 Random glucose-69 Obstetrical ultrasound-normal anatomy One hour Glucola-113 RhoGAM was given at approximately 30 weeks' Group B streptococcus-negative Obstetrical history: She has a history of her first delivery at 27 weeks with a vaginal delivery and weight of 2 lbs. 7 oz. Her second delivery was at 37 weeks and was compensated by threatened labor. Review of Systems Constitutional: Denies chills, Denies fever Eyes: denies blurred vision, denies pain Ears, nose, mouth and throat: Denies headache, Denies sore throat Cardiovascular: Denies chest pain, Denies shortness of breath Respiratory: Denies cough Gastrointestinal: Reports abdominal pain (Contractions) Genitourinary: Reports abnormal vaginal bleeding, Reports pelvic pain, Reports Musculoskeletal: Reports low back pain Integumentary: Denies pruritus, Denies rash Neurological: Denies numbness, Denies weakness Past Medical History Past Medical History: No Reported History Additional Past Medical History / Comment(s): Obstetric history: First was a vaginal delivery at 32 weeks, she was 2#7oz. Second she was delivered at 37 weeks for IUGR. This is her third . History of Any Multi-Drug Resistant Organisms: None Reported Past Surgical History: No Surgical Hx Reported Past Anesthesia/Blood Transfusion Reactions: No Reported Reaction Past Psychological History: No Psychological Hx Reported Smoking Status: Current every day smoker Past Alcohol Use History: None Reported Past Drug Use History: None Reported - Past Family History Father Family Medical History: No Reported History Medications and Allergies Home Medications Medication Instructions Recorded Confirmed Type Fnz-Zoao-Gpaqp Acid 1 cap PO HS 04/24/17 10/26/17 History [-U Capsule (formulary)] Allergies Allergy/AdvReac Type Severity Reaction Status Date / Time No Known Allergies Allergy Verified 10/26/17 11:35 Exam Osteopathic Statement: *. No significant issues noted on an osteopathic structural exam other than those noted in the History and Physical/Consult. - Vital Signs Vital signs: Vital Signs Temp Pulse Resp BP 10/26/17 12:54 97.6 F 85 16 117/71 Intake and Output 10/26/17 10/26/17 10/26/17 06:59 14:59 22:59 Other: Weight 66.224 kg HEENT: Within normal limits Heart: Regular rate and rhythm Lungs: Clear to auscultation bilaterally Abdomen: Cervix: 3-1/2-4 cm/90%/-2 station with bulging bag and some bloody show with some small blood clots noted. Artificial rupture membranes is carried out with clear fluid noted. heart tones: Reactive Contractions: Every 3-4 minutes Extremities: Negative Homans Assessment and Plan (1) 36 weeks gestation of Current Visit: Yes Status: Acute Code(s): Z3A.36 - 36 WEEKS GESTATION OF SNOMED Code(s): 91780530 (2) Vaginal bleeding during Current Visit: Yes Status: Acute Code(s): O46.90 - ANTEPARTUM HEMORRHAGE, UNSPECIFIED, UNSPECIFIED TRIMESTER SNOMED Code(s): 46099917284933122 Plan: Admission for labor. Expectant management. Epidural anesthesia if desired. We will obtain coags due to unusual vaginal bleeding. Most likely this bleeding is due to labor and bloody show however, will check labs.
[2017-10-26 15:50] LABS: D-Dimer 1.75 mg/L FEU (<0.60); Partial Thromboplastin Time 22.7 sec (22.0-30.0); Prothrombin Time 9.5 sec (9.0-12.0)
[2017-10-26] MEDS ORDERED: diphenhydrAMINE 50 MG/ML 1 ML VIAL IVP PRN ×2 (17:01)
[2017-10-26] MEDS ORDERED: LANOLIN CREAM 5 GM TUBE TOPICAL PRN (17:01)
[2017-10-26] MEDS ORDERED: ZOLPIDEM 5 MG TAB PO PRN (17:01)
[2017-10-26] MEDS ORDERED: ACETAMINOPHEN TAB 325 MG TAB PO PRN (17:01)
[2017-10-26] MEDS ORDERED: diphenhydrAMINE 25 MG CAP PO PRN (17:01)
[2017-10-26] MEDS ORDERED: SIMETHICONE 80 MG CHEWABLE PO PRN (17:01)
[2017-10-26] MEDS ORDERED: diphenhydrAMINE 50 MG CAP PO PRN (17:01)
[2017-10-26] MEDS: IBUPROFEN 600 MG TAB PO PRN (17:28)
--- NOTE | 2017-10-26 17:46 | P.PROBDLV ---
Vaginal Delivery Note - . Vaginal Delivery Note: The patient fairly rapidly changed to complete dilation after artificial rupture of membranes with clear fluid noted. She had had one dose of Stadol a few minutes before that time when she was 6 cm. She pushed for a couple pushes and 's head came to a crown. With one further push, the infant's head delivered across the perineum followed by the anterior shoulder. Nuchal cord times one was reduced. Nose and mouth were bulb suctioned at the perineum. With one further push, the remainder the infant was easily delivered and placed on mother's abdomen. Cord was clamped and cut and was taken to warmer for evaluation. A viable female was noted with scores of 8 at 1 minute and 8 at 5 minutes and weight of 5 lbs. 3 oz. Placenta delivered shortly thereafter, intact, with a three-vessel cord. There was noted to be what appeared to be a very small clot on one edge but no obvious evidence of abruption. Uterus was massaged and oxytocin was opened up. Uterus did contract well a gloved hand was inserted through the vagina into the cervix and there was noted to be a small amount of membranes that were palpated and removed with a gloved hand. Uterus did firm up well and bleeding slowed considerably. Inspection of the perineum revealed no perineal lacerations. Estimated blood loss was approximately 200 mL's. Both mother and are in stable condition.
--- NOTE | 2017-10-26 17:48 | P.MSEPDOC ---
Presenting Problems - Arrival Data Date of Arrival on Unit: 10/26/17 Time of Arrival on Unit: 11:12 Mode of Transport: Portable - Complaint OB-Reason for Admission/Chief Complaint: Possible Onset of Labor, Vaginal Bleeding Medical History - Information : 3 Para: 2 Term: 1 : 1 Abortions: Spontaneous or Elective: 0 Number of Living Children: 2 - Gestational Age Gestational Age by ZANE (wks/days): 36 Weeks and 2 Days - History Complications: Prior , Placenta Previa Comment: placenta previa resolved Review of Systems - Review of Systems Constitutional: No problems Breast: No problems ENT: No problems Cardiovascular: No problems Respiratory: No problems Gastrointestinal: No problems Genitourinary: No problems Musculoskeletal: No problems Neurological: No problems Skin: No problems Vital Signs - Temperature Temperature: 36.5 F Temperature Source: Temporal Artery Scan - Pulse Right Sitting Pulse Rate: 100 Pulse Assessment Method: Automatic Cuff - Respirations Respiratory Rate: 16 Oxygen Delivery Method: Room Air - Blood Pressure Right Arm Blood Pressure: 128/72 Blood Pressure Mean: 90 Blood Pressure Source: Automatic Cuff Medical Screen Scoring (Pre) - Cervical Exam Dilation: 1-3 cm = 1 Effacement: More than 50% = 2 Membranes: Intact - Uterine Contractions Frequency: > or = 36 weeks =2 Duration: > 40 seconds = 2 - Maternal Vital Signs Maternal Temperature: N/A Maternal Blood Pressure: N/A Signs of Preeclampsia: N/A Maternal Respirations: N/A - Pain Assessment Pain Location and Character: Abdomen Pain Scale Used: Numeric (1 - 10) Pain Intensity: 9 Pain Description: *Acute, Cramping Pain Frequency: Intermittent Pain Duration Units: Hours Pain Behavior: None Exhibited, Vocalization Pain Aggravating Factors: Contractions - Maternal Trauma Maternal Trauma: N/A - Assessment Baseline FHR: 135 Heart Rate - NICHD Category: Category I (Normal) = 0 NST: Reactive Position: N/A Station: N/A - Total Score Total Score (Pre): 7 - Level of Risk Level of Risk: Medium (6-9) Physician Notification (Pre) - Physician Notified Physician Notified Date: 10/26/17 Physician Notified Time: 12:51 Physician/Practitioner Notifed:: Maira New Order Received: Yes (OB U/S) Medical Screen Scoring (Post) - Cervical Exam Dilation: 1-3 cm = 1 Effacement: More than 50% = 2 Membranes: Intact - Uterine Contractions Frequency: > or = 36 weeks =2 - Maternal Vital Signs Maternal Temperature: N/A Maternal Blood Pressure: N/A Signs of Preeclampsia: N/A - Pain Assessment Pain Location and Character: Abdomen Pain Scale Used: Numeric (1 - 10) Pain Intensity: 10 Pain Description: *Acute Pain Frequency: Intermittent Pain Duration Units: Hours Pain Behavior: Vocalization Pain Aggravating Factors: Contractions - Maternal Trauma Maternal Trauma: N/A - Assessment Heart Rate: 135 Heart Rate - NICHD Category: Category I (Normal) = 0 NST: Reactive Position: N/A Station: N/A - Total Score Total Score (Post): 5 - Post Treatment Level of Risk Post Treatment Level of Risk: Low (0-5) Physician Notification (Post) - Physician Notified Physician Notified Date: 10/26/17 Physician Notified Time: 14:20 Physician/Practitioner Notified:: Maira New Order Received: Yes (admit for labor) Disposition - Disposition OB Disposition: Admit I agree with the RN Medical Screening Exam: Yes Risk & Benefit of care provided described in d/c instruction: Yes Diagnosis: LABOR THIRD TRI W DELIVERY THIRD TRI, UNSP
[2017-10-26] MEDS: SENNOSIDES-DOCUSATE SODIUM 1 EACH TAB PO SCH (21:34)
[2017-10-27] MEDS ORDERED: Rhogam IMMUNE GLOBULIN 1,500 UNIT/1 ML IM ONE (00:35)
[2017-10-27 07:55] LABS: Basophils # (A) 0.1 k/uL (0-0.2); Basophils % (A) 1 %; Eosinophils # (A) 0.2 k/uL (0-0.7); Eosinophils % (A) 1 %; HCT 32.5 % (34.0-46.0); HGB 10.9 gm/dL (11.4-16.0); Lymphocytes # (A) 2.9 k/uL (1.0-4.8); Lymphocytes % (A) 21 %; MCH 30.2 pg (25.0-35.0); MCHC 33.6 g/dL (31.0-37.0); MCV 89.8 fL (80.0-100.0); Mean Platelet Volume 8.7; Monocytes # (A) 0.6 k/uL (0-1.0); Monocytes % (A) 4 %; Neutrophils # (A) 9.9 k/uL (1.3-7.7); Neutrophils % (A) 72 %; Platelet Count 168 k/uL (150-450); RBC 3.62 m/uL (3.80-5.40); RDW 12.8 % (11.5-15.5); WBC 13.8 k/uL (3.8-10.6)
--- NOTE | 2017-10-27 08:23 | P.PNOBGVD ---
Subjective - Subjective Principal diagnosis: S/P NVD PPD #1 Interval history: Patient seen and examined. Denies nausea, vomiting, chest pain, shortness of breath or calf pain. Patient reports: Reports appetite normal, Reports voiding normally, Reports pain well controlled, Reports ambulating normally : doing well Objective - Latest Vital Signs Latest vital signs: Vital Signs Temp Pulse Resp BP 10/27/17 04:00 98.4 F 82 16 114/49 10/27/17 00:30 98.4 F 83 16 119/63 10/26/17 19:00 98.6 F 97 16 117/65 10/26/17 18:35 97.9 F 93 16 127/74 10/26/17 18:05 85 16 121/67 10/26/17 17:48 36.5 F L 100 16 128/72 10/26/17 17:35 100 16 128/72 10/26/17 17:20 88 16 125/72 10/26/17 17:05 90 16 121/77 10/26/17 16:50 93 16 127/76 10/26/17 16:35 36.5 F L 95 16 123/62 10/26/17 15:47 97.6 F 85 16 117/71 10/26/17 12:54 97.6 F 85 16 117/71 Intake and Output 10/26/17 10/27/17 10/27/17 22:59 06:59 14:59 Other: # Voids 1 1 Weight 66.224 kg - Exam Lungs: bilateral: normal Chest: Normal S1, Normal S2 Extremities: Present: normal Abdomen: Present: normal appearance, soft Uterus: Present: normal, firm - Labs Labs: Abnormal Lab Results - Last 24 Hours (Table) 10/26/17 10/26/17 10/27/17 Range/Units 14:55 14:55 07:37 WBC 11.3 H 13.8 H (3.8-10.6) k/uL RBC 3.62 L (3.80-5.40) m/uL Hgb 10.9 L (11.4-16.0) gm/dL Hct 32.5 L (34.0-46.0) % Neutrophils # 8.4 H 9.9 H (1.3-7.7) k/uL D-Dimer 1.75 H (<0.60) mg/L FEU Assessment and Plan (1) Status post normal vaginal delivery Current Visit: Yes Status: Acute Code(s): JFK0568 - SNOMED Code(s): 346753951 Plan: 1. Continue care
[2017-10-27] MEDS: IBUPROFEN 600 MG TAB PO PRN ×2 (08:35→19:54)
[2017-10-27] MEDS: SENNOSIDES-DOCUSATE SODIUM 1 EACH TAB PO SCH (08:36)
[2017-10-28] MEDS: SENNOSIDES-DOCUSATE SODIUM 1 EACH TAB PO SCH ×2 (00:20→09:48)
--- NOTE | 2017-10-28 08:56 | P.DS ---
Providers Date of admission: 10/26/17 14:21 Expected date of discharge: 10/28/17 Attending physician: Neema Bustillo Primary care physician: Stated None - Discharge Diagnosis(es) (1) Status post normal vaginal delivery Current Visit: Yes Status: Acute Hospital Course: Patient presented in active labor. She underwent normal vaginal delivery. Her post course was uncomplicated. She'll be discharged home day #2 in stable condition to follow-up with me in 6 weeks. Plan - Discharge Summary New Discharge Prescriptions: New Ibuprofen [Motrin] 600 mg PO Q6HR PRN #30 tab PRN Reason: Mild Pain Or Fever >= 100.5 No Action Ksw-Dwaa-Groqp Acid [-U Capsule (formulary)] 1 cap PO HS Discharge Medication List Zbt-Fwqy-Pqamo Acid [-U Capsule (formulary)] 1 cap PO HS [History] Ibuprofen [Motrin] 600 mg PO Q6HR PRN #30 tab 10/28/17 [Rx] Follow up Appointment(s)/Referral(s): Neema Bustillo DO [Doctor of Osteopathic Medicine] - 6 Weeks Discharge Disposition: HOME SELF-CARE
[2017-10-28 09:50] VITALS: BP 122/71; PULSE 77; TEMP 98.6
== END 2017-10-28 11:13 | disposition home or self-care (01) | DRG 774 ==
LOC: FBPOP 11:12 → 4FBP 14:21
PROVIDERS: ADMIT Obstetrics & Gynecology; ATTEND Obstetrics & Gynecology
PROC: 10E0XZZ Delivery of Products of Conception, External Approach (ICD-10-PCS; principal; 2017-10-26)
PROC: 10907ZC Drainage of Amniotic Fluid, Therapeutic from Products of Conception, Via Natural or Artificial Opening (ICD-10-PCS; principal; 2017-10-26)
DX: O46.93 Antepartum hemorrhage, unspecified, third trimester (principal); O60.14X0 Preterm labor third trimester with preterm delivery third trimester, not applicable or unspecified; O26.873 Cervical shortening, third trimester; Z37.0 Single live birth; Z3A.36 36 weeks gestation of pregnancy; F17.200 Nicotine dependence, unspecified, uncomplicated; O99.334 Smoking (tobacco) complicating childbirth; O69.81X0 Labor and delivery complicated by cord around neck, without compression, not applicable or unspecified
CPT/HCPCS: 59025; 76805; 85025; 85379; 85384; 85461; 85610; 85730; 86850; 86870; 86880; 86900; 86901; 86902; 88307; 99213

== ENCOUNTER 2018-11-17 13:29 | Emergency (ER) | payer BC, OTHER ==
[2018-11-17 13:33] VITALS: RESP 18
[2018-11-17 14:10] VITALS: BP 100/62; PULSE 136; TEMP 96.6
--- NOTE | 2018-11-17 14:12 | ED ---
General Adult HPI <Oliver Corrales - Last Filed: 11/17/18 16:53> - General Source: patient, RN notes reviewed, old records reviewed Mode of arrival: wheelchair Limitations: no limitations <[place] Abad - Last Filed: 11/18/18 00:47> - General Chief complaint: Abdominal Pain Stated complaint: Abd pain Time Seen by Provider: 11/17/18 14:01 - History of Present Illness Initial comments: 23-year-old female patient with no pertinent past medical history presents to ED with chief complaint of approximately 6 weeks of right lower quadrant abdominal pain. Patient reports that she is evaluated for this problem approximately 2 weeks ago and placed on an antibiotic for urinary tract infection. Patient states that the pain as a cramping pain in her right lower quadrant region. Denies any nausea vomiting diarrhea, denies any fevers or chills. Systemic: Pt denies fatigue, fever/chills, rash. Pt denies weakness, night sweats, weight loss. Neuro: Pt denies headache, visual disturbances, syncope or pre-syncope. HEENT: Pt denies ocular discharge or irritation, otalgia, rhinorrhea, pharyngitis or notable lymphadenopathy. Cardiopulmonary: Pt denies chest pain, SOB, heart palpitations, dyspnea on exertion. Abdominal/GI: Pt denies abdominal pain, n/v/d. : Pt denies dysuria, burning w/ urination, frequency/urgency. Denies new onset urinary or bowel incontinence. MSK: Pt denies myalgia, loss of strength or function in extremities. Neuro: Pt denies new onset weakness, paresthesias. ([place] Abad) - Related Data Home Medications Medication Instructions Recorded Confirmed [id number] Acid 1 cap PO HS 04/24/17 10/26/17 [-U Capsule (formulary)] Previous Rx's Medication Instructions Recorded Ibuprofen [Motrin] 600 mg PO Q6HR PRN #30 tab 10/28/17 Cephalexin [Keflex] 500 mg PO Q12HR 10 Days cap 11/17/18 Pnv No.95/Ferrous Fum/Folic AC 1 each PO Q24HR 30 Days #30 tablet 11/17/18 [ Multivitamin Tablet] Allergies Allergy/AdvReac Type Severity Reaction Status Date / Time No Known Allergies Allergy Verified 11/17/18 13:33 Review of Systems ROS Other: All systems not noted in ROS Statement are negative. <Oliver Corrales - Last Filed: 11/17/18 16:53> ROS Other: All systems not noted in ROS Statement are negative. <D[place] Abad - Last Filed: 11/18/18 00:47> ROS Statement: Those systems with pertinent positive or pertinent negative responses have been documented in the HPI. Past Medical History Past Medical History: No Reported History Additional Past Medical History / Comment(s): . History of Any Multi-Drug Resistant Organisms: None Reported Past Surgical History: No Surgical Hx Reported Past Anesthesia/Blood Transfusion Reactions: No Reported Reaction Past Psychological History: Anxiety, Depression Smoking Status: Current every day smoker Past Alcohol Use History: None Reported Past Drug Use History: None Reported - Past Family History Sister(s) Family Medical History: Seizure Disorder Father Family Medical History: No Reported History <D[place] Abad - Last Filed: 11/18/18 00:47> General Exam Limitations: no limitations <D[place] Abad - Last Filed: 11/18/18 00:47> - General Exam Comments Initial Comments: Constitutional: NAD, AOX3, Pt has pleasant affect. HEENT: NC/AT, trachea midline, neck supple, no lymphadenopathy. Posterior pharynx non erythematous, without exudates. External ears appear normal, without discharge. Mucous membranes moist. Eyes PERRLA, EOM intact. There is no scleral icterus. No pallor noted. Cardiopulmonary: RRR, no murmurs, rubs or gallops, no JVD noted. Lungs CTAB in anterior and posterior palumbo. No peripheral edema. Abdominal exam: Abdomen soft and non-distended. Abdomen mildly tender to palpation in right lower quadrant and suprapubic region. No other areas of abdominal tenderness, no adnexal tenderness. No guarding or rigidity. Bowel sounds active in LLQ. No hepatosplenomegaly. No ecchymosis Neuro: CN II-XII grossly intact. No nuchal rigidity. No raccon eyes, no rowe sign, no hemotympanum. No cervical spinal tenderness. MSK: No posterior calf tenderness bilaterally, homans sign negative bilaterally. Posterior tibialis and radial pulse +2 bilaterally. Sensation intact in upper and lower extremities. Full active ROM in upper and lower extremities, 5/5 stregnth. Pelvic: Pelvic exam displayed very mild cervical dilation, no vaginal bleeding or discharge noted. Chaperogned by DARRIAN Benavidez. ([place] Abad) Course Vital Signs 11/17/18 11/17/18 13:29 14:09 Temperature 98.7 F 96.6 F L Pulse Rate 137 H 136 H Respiratory 18 18 Rate Blood Pressure 119/67 100/62 O2 Sat by Pulse 99 97 Oximetry Medical Decision Making - Lab Data Result diagrams: 11/17/18 14:20 11/17/18 14:20 <Oliver Corrales - Last Filed: 11/17/18 16:53> - Lab Data Result diagrams: 11/17/18 14:20 11/17/18 14:20 - EKG Data -: EKG Interpreted by Me (and Dr. Corrales) <[place] Abad - Last Filed: 11/18/18 00:47> - Medical Decision Making I, Daljit Corrales, personally saw and examined the patient. I have reviewed and agree with the PA findings, including all diagnostic interpretations and treatment plans as written unless otherwise stated. I was present for the wilcox portions of any procedures performed and the inclusive time noted for any critical care statement. I reviewed the ultrasound results with the PA as well as the lead based paint technician. And immediately had Dr. Bustillo paged. Patient denied any drug use. Patient didn't believe me when I told her she was 22 weeks she insists that she can't be. I spoke with Dr. Rao on the phone because Dr. Bustillo was in delivering a baby I indicated to her that this patient might be in active labor and she wanted us to have OB come see the patient test for amniotic fluid and do a nonstress test to determine if the patient was in labor and she will be contacting labor and delivery to determine what her next move would be. (Oliver Corrales) 23-year-old female patient with no pertinent past medical history presents to ED with chief complaint of approximately 6 weeks of right lower quadrant abdominal pain. Patient reports that she is evaluated for this problem approximately 2 weeks ago and placed on an antibiotic for urinary tract infection. Patient states that the pain as a cramping pain in her right lower quadrant region. Denies any nausea vomiting diarrhea, denies any fevers or chills. Patient vital signs display tachycardia, otherwise stable. Tachycardia of 137, 136. Physical exam displayed mild tender to palpation right lower quadrant and suprapubic region. Pelvic exam displayed very mild cervical dilation, no vaginal bleeding or discharge noted. Dr. Bustillo confirmed findings on seperate exam. Laboratory investigations revealed mild leukocytosis of 11.3. Mild anemia of 9.5. CMP rev ealed sodium 136, calcium mildly decreased at 8.0. Lipase negative. HCG Quant 00027. UA food broker >182 RBC, >182 . Troponin was negative. [place] [address]. EKG not concerning for acute ischemia. Toxicology screen revealed positive methamphetamine and amphetamines. Transvaginal shown displayed 22 weeks 5 days with us or delivery of was 19. Short cervix with funneling, correlate for active labor. CLINICAL GENETICIST was consulted, Dr. Bustillo examined patient. Patient determined not to be in active labor. Dr. Bustillo reccomended that patient was transferred to another facility for inpatient evaluation. Patient declined, will sign out AMA. Patient was discharged with Keflex for urinary tract infection and vitamins. I do believe that patients pain is due to UTI. Will follow up with Dr. Bustillo in office. Patient left prior to administration to Rhogam which was ordered due to blood in urine, was advised on risks, including demise, personal injury or , pt verbalized understanding. Discussion of risks witnessed by DARRIAN Benavidez. Case discussed in depth and pt seen by Dr. Corrales. ([place] Abad) - Lab Data Lab Results 11/17/18 11/17/18 11/17/18 Range/Units 14:20 14:20 14:20 WBC 11.3 H (3.8-10.6) k/uL RBC 3.30 L (3.80-5.40) m/uL Hgb 9.5 L (11.4-16.0) gm/dL Hct 28.7 L (34.0-46.0) % MCV 87.0 (80.0-100.0) fL MCH 28.7 (25.0-35.0) pg MCHC 33.0 (31.0-37.0) g/dL RDW 14.1 (11.5-15.5) % Plt Count 347 (150-450) k/uL Neutrophils % 91 % Lymphocytes % 5 % Monocytes % 3 % Eosinophils % 1 % Basophils % 0 % Neutrophils # 10.3 H (1.3-7.7) k/uL Lymphocytes # 0.6 L (1.0-4.8) k/uL Monocytes # 0.3 (0-1.0) k/uL Eosinophils # 0.1 (0-0.7) k/uL Basophils # 0.0 (0-0.2) k/uL Sodium 136 L (137-145) mmol/L Potassium 3.7 (3.5-5.1) mmol/L Chloride 106 (98-107) mmol/L Carbon Dioxide 24 (22-30) mmol/L Anion Gap 6 mmol/L BUN 6 L (7-17) mg/dL Creatinine 0.46 L (0.52-1.04) mg/dL Est GFR (CKD-EPI)AfAm >90 (>60 ml/min/1.73 sqM) Est GFR (CKD-EPI)NonAf >90 (>60 ml/min/1.73 sqM) Glucose 98 (74-99) mg/dL Plasma Lactic Acid Wallace 1.0 (0.7-2.0) mmol/L Calcium 8.0 L (8.4-10.2) mg/dL Total Bilirubin 0.2 (0.2-1.3) mg/dL AST 17 (14-36) U/L ALT 19 (9-52) U/L Alkaline Phosphatase 132 H (38-126) U/L Troponin I (0.000-0.034) ng/mL Total Protein 5.8 L (6.3-8.2) g/dL Albumin 2.8 L (3.5-5.0) g/dL Lipase 48 (23-300) U/L HCG, Quant 40244.5 mIU/mL Urine Color Urine Appearance (Clear) Urine pH (5.0-8.0) Ur Specific [place] (1.001-1.035) Urine Protein (Negative) Urine Glucose (UA) (Negative) Urine Ketones (Negative) Urine Blood (Negative) Urine Nitrite (Negative) Urine Bilirubin (Negative) Urine Urobilinogen (<2.0) mg/dL Ur Leukocyte Esterase (Negative) Urine RBC (0-5) /hpf Urine WBC (0-5) /hpf Urine WBC Clumps (None) /hpf Urine Bacteria (None) /hpf Urine Mucus (None) /hpf Urine Opiates Screen (NotDetected) Ur Oxycodone Screen (NotDetected) Urine Methadone Screen (NotDetected) Ur Propoxyphene Screen (NotDetected) Ur Barbiturates Screen (NotDetected) U Tricyclic Antidepress (NotDetected) Ur Phencyclidine Scrn (NotDetected) Ur Amphetamines Screen (NotDetected) U Methamphetamines Scrn (NotDetected) U Benzodiazepines Scrn (NotDetected) Urine Cocaine Screen (NotDetected) U Marijuana (THC) Screen (NotDetected) Blood Type Blood Type Recheck Antibody Screen Spec Expiration Date 11/17/18 11/17/18 11/17/18 Range/Units 14:20 14:20 14:20 WBC (3.8-10.6) k/uL RBC (3.80-5.40) m/uL Hgb (11.4-16.0) gm/dL Hct (34.0-46.0) % MCV (80.0-100.0) fL MCH (25.0-35.0) pg MCHC (31.0-37.0) g/dL RDW (11.5-15.5) % Plt Count (150-450) k/uL Neutrophils % % Lymphocytes % % Monocytes % % Eosinophils % % Basophils % % Neutrophils # (1.3-7.7) k/uL Lymphocytes # (1.0-4.8) k/uL Monocytes # (0-1.0) k/uL Eosinophils # (0-0.7) k/uL Basophils # (0-0.2) k/uL Sodium (137-145) mmol/L Potassium (3.5-5.1) mmol/L Chloride (98-107) mmol/L Carbon Dioxide (22-30) mmol/L Anion Gap mmol/L BUN (7-17) mg/dL Creatinine (0.52-1.04) mg/dL Est GFR (CKD-EPI)AfAm (>60 ml/min/1.73 sqM) Est GFR (CKD-EPI)NonAf (>60 ml/min/1.73 sqM) Glucose (74-99) mg/dL Plasma Lactic Acid Wallace (0.7-2.0) mmol/L Calcium (8.4-10.2) mg/dL Total Bilirubin (0.2-1.3) mg/dL AST (14-36) U/L ALT (9-52) U/L Alkaline Phosphatase (38-126) U/L Troponin I <0.012 (0.000-0.034) ng/mL Total Protein (6.3-8.2) g/dL Albumin (3.5-5.0) g/dL Lipase (23-300) U/L HCG, Quant mIU/mL Urine Color Yellow Urine Appearance Turbid H (Clear) Urine pH 6.5 (5.0-8.0) Ur Specific [place] 1.017 (1.001-1.035) Urine Protein 2+ H (Negative) Urine Glucose (UA) Negative (Negative) Urine Ketones Negative (Negative) Urine Blood Moderate H (Negative) Urine Nitrite Negative (Negative) Urine Bilirubin Negative (Negative) Urine Urobilinogen <2.0 (<2.0) mg/dL Ur Leukocyte Esterase Large H (Negative) Urine RBC >182 H (0-5) /hpf Urine WBC >182 H (0-5) /hpf Urine WBC Clumps Many H (None) /hpf Urine Bacteria Rare H (None) /hpf Urine Mucus Many H (None) /hpf Urine Opiates Screen (NotDetected) Ur Oxycodone Screen (NotDetected) Urine Methadone Screen (NotDetected) Ur Propoxyphene Screen (NotDetected) Ur Barbiturates Screen (NotDetected) U Tricyclic Antidepress (NotDetected) Ur Phencyclidine Scrn (NotDetected) Ur Amphetamines Screen (NotDetected) U Methamphetamines Scrn (NotDetected) U Benzodiazepines Scrn (NotDetected) Urine Cocaine Screen (NotDetected) U Marijuana (THC) Screen (NotDetected) Blood Type AB Negative Blood Type Recheck No Antibody Screen NEGATIVE Spec Expiration Date 11/20/2018 - 231911/17/18 Range/Units 14:40 WBC (3.8-10.6) k/uL RBC (3.80-5.40) m/uL Hgb (11.4-16.0) gm/dL Hct (34.0-46.0) % MCV (80.0-100.0) fL MCH (25.0-35.0) pg MCHC (31.0-37.0) g/dL RDW (11.5-15.5) % Plt Count (150-450) k/uL Neutrophils % % Lymphocytes % % Monocytes % % Eosinophils % % Basophils % % Neutrophils # (1.3-7.7) k/uL Lymphocytes # (1.0-4.8) k/uL Monocytes # (0-1.0) k/uL Eosinophils # (0-0.7) k/uL Basophils # (0-0.2) k/uL Sodium (137-145) mmol/L Potassium (3.5-5.1) mmol/L Chloride (98-107) mmol/L Carbon Dioxide (22-30) mmol/L Anion Gap mmol/L BUN (7-17) mg/dL Creatinine (0.52-1.04) mg/dL Est GFR (CKD-EPI)AfAm (>60 ml/min/1.73 sqM) Est GFR (CKD-EPI)NonAf (>60 ml/min/1.73 sqM) Glucose (74-99) mg/dL Plasma Lactic Acid Wallace (0.7-2.0) mmol/L Calcium (8.4-10.2) mg/dL Total Bilirubin (0.2-1.3) mg/dL AST (14-36) U/L ALT (9-52) U/L Alkaline Phosphatase (38-126) U/L Troponin I (0.000-0.034) ng/mL Total Protein (6.3-8.2) g/dL Albumin (3.5-5.0) g/dL Lipase (23-300) U/L HCG, Quant mIU/mL Urine Color Urine Appearance (Clear) Urine pH (5.0-8.0) Ur Specific [place] (1.001-1.035) Urine Protein (Negative) Urine Glucose (UA) (Negative) Urine Ketones (Negative) Urine Blood (Negative) Urine Nitrite (Negative) Urine Bilirubin (Negative) Urine Urobilinogen (<2.0) mg/dL Ur Leukocyte Esterase (Negative) Urine RBC (0-5) /hpf Urine WBC (0-5) /hpf Urine WBC Clumps (None) /hpf Urine Bacteria (None) /hpf Urine Mucus (None) /hpf Urine Opiates Screen Not Detected (NotDetected) Ur Oxycodone Screen Not Detected (NotDetected) Urine Methadone Screen Not Detected (NotDetected) Ur Propoxyphene Screen Not Detected (NotDetected) Ur Barbiturates Screen Not Detected (NotDetected) U Tricyclic Antidepress Not Detected (NotDetected) Ur Phencyclidine Scrn Not Detected (NotDetected) Ur Amphetamines Screen Detected H (NotDetected) U Methamphetamines Scrn Detected H (NotDetected) U Benzodiazepines Scrn Not Detected (NotDetected) Urine Cocaine Screen Not Detected (NotDetected) U Marijuana (THC) Screen Not Detected (NotDetected) Blood Type Blood Type Recheck Antibody Screen Spec Expiration Date - EKG Data EKG Comments: Ventricular 133, CT interval 118, QRS 80, QT/QTC 316/470. Sinus tachycardia, T-wave abnormality, consider inferior ischemia. Abnormal EKG. ([place] Abad) Critical Care Time Critical Care Time: Yes Total Critical Care Time: 33 <[place] Abad - Last Filed: 11/18/18 00:47> Disposition <Oliver Corrales - Last Filed: 11/17/18 16:53> Is patient prescribed a controlled substance at d/c from ED?: No <[place] Abad - Last Filed: 11/18/18 00:47> Clinical Impression: UTI (urinary tract infection), Disposition: Left Against Medical Advice Condition: Undetermined Instructions (If sedation given, give patient instructions): (ED) Additional Instructions: Follow-up with Dr. Bustillo tomorrow. Return immediately to ER if condition worsens in any way. Follow-up with primary care provider in 1-2 days. Prescriptions: Cephalexin [Keflex] 500 mg PO Q12HR 10 Days cap Pnv No.95/Ferrous Fum/Folic AC [ Multivitamin Tablet] 1 each PO Q24HR 30 Days #30 tablet Referrals: None,Stated [Primary Care Provider] - 1-2 days Neema Bustillo DO [Doctor of Osteopathic Medicine] - 1-2 days
[2018-11-17] MEDS ORDERED: SODIUM CHLORIDE 0.9% 1,000 ML IV STA (14:27)
[2018-11-17 14:47] LABS: Basophils % (A) 0 %; Eosinophils # (A) 0.1 k/uL (0-0.7); Eosinophils % (A) 1 %; HCT 28.7 % (34.0-46.0); HGB 9.5 gm/dL (11.4-16.0); Lymphocytes # (A) 0.6 k/uL (1.0-4.8); Lymphocytes % (A) 5 %; MCH 28.7 pg (25.0-35.0); Mean Platelet Volume 6.7; Monocytes # (A) 0.3 k/uL (0-1.0); Monocytes % (A) 3 %; Neutrophils # (A) 10.3 k/uL (1.3-7.7); Neutrophils % (A) 91 %; Platelet Count 347 k/uL (150-450); RDW 14.1 % (11.5-15.5); WBC 11.3 k/uL (3.8-10.6)
[2018-11-17 14:58] LABS: ALT 19 U/L (9-52); AST 17 U/L (14-36); African American GFR (CKD) >90 (>60 ml/min/1.73 sqM); Albumin 2.8 g/dL (3.5-5.0); Alkaline Phosphatase 132 U/L (38-126); Anion Gap 6 mmol/L; Blood Urea Nitrogen 6 mg/dL (7-17); Carbon Dioxide 24 mmol/L (22-30); Chloride 106 mmol/L (98-107); Glucose 98 mg/dL (74-99); Lipase 48 U/L (23-300); Potassium 3.7 mmol/L (3.5-5.1); Sodium 136 mmol/L (137-145); Total Bilirubin 0.2 mg/dL (0.2-1.3); Total Protein 5.8 g/dL (6.3-8.2)
[2018-11-17 15:12] LABS: Appearance,Urine Turbid (Clear); Bacteria,Urine Rare /hpf; Bilirubin,Urine Negative (Negative); Blood,Urine Moderate (Negative); Color,Urine Yellow; Glucose,Urine (UA) Negative (Negative); Ketones,Urine Negative (Negative); Leukocyte Esterase,Urine Large (Negative); Mucus,Urine Many /hpf; Nitrite,Urine Negative (Negative); PH, Urine 6.5 (5.0-8.0); Protein,Urine 2+ (Negative); Urobilinogen,Urine <2.0 mg/dL (<2.0); WBC,Urine >182 /hpf (0-5)
[2018-11-17 15:13] LABS: RBC,Urine >182 /hpf (0-5)
[2018-11-17 15:15] LABS: HCG,Quantitative Serum 14013.5 mIU/mL
[2018-11-17 15:22] LABS: Amphetamine Screen,Urine Detected (NotDetected); Barbiturate Screen,Urine Not Detected (NotDetected); Benzodiazepines Screen,Urine Not Detected (NotDetected); Cocaine Screen,Urine Not Detected (NotDetected); Methadone Screen, Urine Not Detected (NotDetected); Opiate Screen,Urine Not Detected (NotDetected); Oxycodone Screen, Urine Not Detected (NotDetected); Phencyclidine Screen,Urine Not Detected (NotDetected); Tricyclic Antidepressant,Urine Not Detected (NotDetected); Urn Cannabinoid Scrn Not Detected (NotDetected)
[2018-11-17 15:26] LABS: Specific Gravity,Urine 1.017 (1.001-1.035)
[2018-11-17] MEDS ORDERED: cefTRIAXone IN SWFI 1,000 MG/10 ML SYRINGE IVP STA (16:02)
--- NOTE | 2018-11-17 16:19 | US ---
EXAMINATION TYPE: US abdomen APPY DATE OF EXAM: 11/17/2018 COMPARISON: NONE CLINICAL HISTORY: Pain. APPENDIX AP Diameter (normal < 6mm): Not visualized Measured outer wall to outer wall. Is the appendix seen in its entirety from the proximal cecum to distal end: Not visualized IMPRESSION: Nonvisualization of the appendix.
--- NOTE | 2018-11-17 16:21 | US ---
EXAMINATION TYPE: US OB >= 14 wk fetus DATE OF EXAM: 11/17/2018 COMPARISON: None CLINICAL HISTORY: Pain Pain on and off every 2-3 minutes TECHNIQUE: Transvaginal (TV) and Transabdominal (TA) GESTATIONAL AGE / DATING Physician Established: Not yet established Dates by LMP: LMP unknown Dates by First Scan: No previous this is first scan Dates by Current Scan for: (22 weeks/5 days) EDC: 03/18/2019 Beta HCG (if available): 14,013.5 SURVEY IUP: Single PLACENTA: Fundal PREVIA: No Previa CYNTHIA: 11.6 cm Normal CERVICAL LENGTH (transabdominal: norm > 3.0cm): Not visualized CERVICAL LENGTH (transvaginal: norm> 2.5cm): 1.6 cm (Supplemental transvaginal imaging performed to verify cervical length.) BIOMETRY PRESENTATION: Breech LIE: Longitudinal BPD: 5.5 cm 22 weeks / 5 days HC: 20.98 cm 23 weeks / 0 days AC: 18.6 cm 23 weeks / 3 days FL: 3.99 cm 22 weeks / 6 days ESTIMATED WEIGHT IN GRAMS: 567.5 grams ESTIMATED WEIGHT IN LBS/OZ: 1 lbs. 4 oz. HC/AC: 1.13 Normal FL/AC: 21.43 Normal HEART RATE: 150 bpm RHYTHM: Normal Viable IUP with an ZANE of 03/18/2019. Cervix appears to be funneling and possible open Cervical length is measured at 1.6 and 2.4 cm on successive endovaginal measurements. IMPRESSION: Viable 8 urine corresponding to an ultrasound age of 22 weeks 5 days with estimated date of delivery 03/18/2019. Shortened cervix with funneling, correlate for active labor, recommend OFFICE AGENT cons ult
--- NOTE | 2018-11-17 17:16 | US ---
See dictated report OB ultrasound same date
[2018-11-17] MEDS ORDERED: Rhogam IMMUNE GLOBULIN 1,500 UNIT/1 ML IM ONE (17:58)
== END 2018-11-17 18:15 | disposition left against medical advice (07) ==
LOC: EC 13:29
DX: O23.42 Unspecified infection of urinary tract in pregnancy, second trimester (principal); O99.012 Anemia complicating pregnancy, second trimester; O99.112 Other diseases of the blood and blood-forming organs and certain disorders involving the immune mechanism complicating pregnancy, second trimester; D72.829 Elevated white blood cell count, unspecified; O34.32 Maternal care for cervical incompetence, second trimester; O99.282 Endocrine, nutritional and metabolic diseases complicating pregnancy, second trimester; E83.51 Hypocalcemia; O99.89 Other specified diseases and conditions complicating pregnancy, childbirth and the puerperium; R00.0 Tachycardia, unspecified; O99.332 Smoking (tobacco) complicating pregnancy, second trimester; F17.200 Nicotine dependence, unspecified, uncomplicated; Z3A.22 22 weeks gestation of pregnancy; Z53.29 Procedure and treatment not carried out because of patient's decision for other reasons
CPT/HCPCS: 36415; 93005; 86900; 86901; 80053; 83605; 83690; 84484; 85025; 86850; 81001; 84702; 80306; 76705; 76805; 76817; 99285; 96374; 96361 ×3; J0696

== ENCOUNTER 2021-01-22 23:46 | Inpatient (IN) | payer BC, OTHER ==
[2021-01-23] MEDS ORDERED: LIDOCAINE 0.5% (PF) 5 MG/ML (50 ML SDV) SQ PRN
[2021-01-23] MEDS ORDERED: METHYLERGONOVINE 0.2 MG/ML 1 ML AMP IM PRN
[2021-01-23] MEDS ORDERED: LACTATED RINGERS 1,000 ML IV SCH
[2021-01-23] MEDS ORDERED: CARBOPROST TROMETHAMINE 250 MCG/ML 1 ML AMP IM PRN
[2021-01-23] MEDS ORDERED: TERBUTALINE 1 MG/ML VIAL SQ PRN
[2021-01-23] MEDS ORDERED: OXYTOCIN 10 UNIT/ML 1 ML VIAL IM PRN
[2021-01-23 00:10] LABS: Basophils # (A) 0.1 k/uL (0-0.2); Basophils % (A) 0 %; Eosinophils # (A) 0.1 k/uL (0-0.7); Eosinophils % (A) 0 %; HCT 31.1 % (34.0-46.0); HGB 9.9 gm/dL (11.4-16.0); Hypochromasia Moderate; Lymphocytes # (A) 1.6 k/uL (1.0-4.8); Lymphocytes % (A) 13 %; MCH 24.3 pg (25.0-35.0); MCHC 31.9 g/dL (31.0-37.0); MCV 76.1 fL (80.0-100.0); Mean Platelet Volume 9.1; Microcytosis Slight; Monocytes # (A) 0.4 k/uL (0-1.0); Monocytes % (A) 3 %; Neutrophils # (A) 10.6 k/uL (1.3-7.7); Neutrophils % (A) 82 %; Platelet Count 293 k/uL (150-450); Poikilocytosis Slight; RBC 4.08 m/uL (3.80-5.40); WBC 12.9 k/uL (3.8-10.6)
[2021-01-23 00:27] LABS: Amphetamine Screen,Urine Detected (NotDetected); Barbiturate Screen,Urine Not Detected (NotDetected); Benzodiazepines Screen,Urine Not Detected (NotDetected); Cocaine Screen,Urine Not Detected (NotDetected); Methadone Screen, Urine Not Detected (NotDetected); Opiate Screen,Urine Not Detected (NotDetected); Oxycodone Screen, Urine Not Detected (NotDetected); Phencyclidine Screen,Urine Not Detected (NotDetected); Tricyclic Antidepressant,Urine Not Detected (NotDetected); Urn Cannabinoid Scrn Not Detected (NotDetected)
[2021-01-23] MEDS ORDERED: diphenhydrAMINE 25 MG CAP PO PRN (00:28)
[2021-01-23] MEDS ORDERED: Rhogam IMMUNE GLOBULIN 1,500 UNIT/1 ML IM ONE (00:28)
[2021-01-23] MEDS ORDERED: ZOLPIDEM 5 MG TAB PO PRN (00:28)
[2021-01-23] MEDS ORDERED: diphenhydrAMINE 50 MG CAP PO PRN (00:28)
[2021-01-23] MEDS ORDERED: LANOLIN CREAM 5 GM TUBE TOPICAL PRN (00:28)
[2021-01-23] MEDS ORDERED: SIMETHICONE 80 MG CHEWABLE PO PRN (00:28)
[2021-01-23] MEDS ORDERED: diphenhydrAMINE 50 MG/ML 1 ML VIAL IVP PRN ×2 (00:28)
[2021-01-23] MEDS ORDERED: HYDROCORTISONE 2.5% RECTAL CREAM 30 GM TUBE RECTAL PRN (00:28)
[2021-01-23] MEDS ORDERED: BENZOCAINE/MENTHOL SPRAY 1 GM/SPRAY AEROSOL TOPICAL PRN (00:28)
--- NOTE | 2021-01-23 00:28 | P.HPOB ---
History of Present Illness H&P Date: 01/23/21 Chief Complaint: labor 25 year old presents at 36 weeks 1 day in active labor. Her cervix is completely dilated and bag of water is bulging. She is beatriz every few minutes and heart tones are 140 with moderate variability. Pt states she has had no care. She had an US at the center at 32 weeks which is how they confirmed her EDC. Review of Systems All systems: negative Constitutional: Denies chills, Denies fever Eyes: denies blurred vision, denies pain Ears, nose, mouth and throat: Denies headache, Denies sore throat Cardiovascular: Denies chest pain, Denies shortness of breath Respiratory: Denies cough Gastrointestinal: Denies abdominal pain, Denies diarrhea, Denies nausea, Denies vomiting Genitourinary: Denies dysuria, Denies hematuria Musculoskeletal: Denies myalgias Integumentary: Denies pruritus, Denies rash Neurological: Denies numbness, Denies weakness Psychiatric: Denies anxiety, Denies depression Endocrine: Denies fatigue, Denies weight change Past Medical History Past Medical History: No Reported History Additional Past Medical History / Comment(s): . She has had 4 previous deliveries. History of Any Multi-Drug Resistant Organisms: None Reported Past Surgical History: No Surgical Hx Reported Past Anesthesia/Blood Transfusion Reactions: No Reported Reaction Past Psychological History: Anxiety, Depression Past Alcohol Use History: None Reported Past Drug Use History: None Reported - Past Family History Sister(s) Family Medical History: Seizure Disorder Father Family Medical History: No Reported History Medications and Allergies Home Medications Medication Instructions Recorded Confirmed Type No Known Home Medications 01/22/21 01/22/21 History Allergies Allergy/AdvReac Type Severity Reaction Status Date / Time No Known Allergies Allergy Verified 01/22/21 23:58 Exam Osteopathic Statement: *. No significant issues noted on an osteopathic structural exam other than those noted in the History and Physical/Consult. Intake and Output 01/22/21 01/22/21 01/23/21 14:59 22:59 06:59 Other: Weight 63.503 kg Heart: Regular rate and rhythm Lungs: Clear to auscultation bilaterally Abdomen: Soft, nontender Extremities: Negative Homans sign Results Result Diagrams: 01/23/21 00:00 Abnormal Lab Results - Last 24 Hours (Table) 01/23/21 Range/Units 00:00 WBC 12.9 H (3.8-10.6) k/uL Hgb 9.9 L (11.4-16.0) gm/dL Hct 31.1 L (34.0-46.0) % MCV 76.1 L (80.0-100.0) fL MCH 24.3 L (25.0-35.0) pg RDW 16.0 H (11.5-15.5) % Neutrophils # 10.6 H (1.3-7.7) k/uL Assessment and Plan (1) 36 weeks gestation of Current Visit: No Status: Acute Code(s): Z3A.36 - 36 WEEKS GESTATION OF SNOMED Code(s): 38240641 (2) History of delivery Current Visit: No Status: Acute Code(s): Z87.51 - PERSONAL HISTORY OF PRE- TERM LABOR SNOMED Code(s): 941483099 (3) labor Current Visit: No Status: Acute Code(s): O60.00 - LABOR WITHOUT DELIVERY, UNSPECIFIED TRIMESTER SNOMED Code(s): 7389728 Plan: 1. admit to [facility] 2. expectant management 3. anticipate normal vaginal delivery
[2021-01-23] MEDS ORDERED: OXYTOCIN 30 UNITS/500 ML NS 30 UNIT in SALINE 1 500ML.BAG IV SCH ×2 (00:30)
--- NOTE | 2021-01-23 00:35 | P.PROBDLV ---
Vaginal Delivery Note - . Vaginal Delivery Note: 25 year old presents at 36 weeks 1 day in active labor. Her cervix is completely dilated and bag of water is bulging. She is beatriz every few minutes and heart tones are 140 with moderate variability. Patient was taken to the labor and delivery room and IV was started. Amniotomy was performed, clear fluid noted. She started pushing and the heart tones went down to the 70s. Oxygen mask was applied. The heart tones were not coming back up, the baby was in OP position confirmed, bladder was drained, baby B is in +2 position. Informed consent was obtained and a vacuum was applied. One pull and no pop offs, 's head delivered OP, nuchal cord 1 easily reduced, anterior shoulder delivered gentle downward guidance for posterior shoulder and rest of body at 0010. Nose and mouth bulb suctioned, cord clamped and cut, infant placed on mother's abdomen. Placenta delivered spontaneous, intact with three-vessel cord at 0013. Vagina, cervix, perineum inspected. No lacerations noted. Estimated blood loss 200 mL. Mother in stable condition, baby is taken to the nursery.
[2021-01-23 00:46] VITALS: RESP 16
[2021-01-23] MEDS: IBUPROFEN 600 MG TAB PO PRN ×4 (00:48→21:15)
[2021-01-23] MEDS: SENNOSIDES-DOCUSATE SODIUM 1 EACH TAB PO SCH ×2 (08:44→21:15)
[2021-01-23 18:06] LABS: Hepatitis B Surface Antigen Non-Reactive (Non-Reactive)
[2021-01-23 18:26] LABS: HIV 2 AB Non-Reactive (Non-Reactive); HIV AB P24 Non-Reactive (Non-Reactive); HIV P24 AG Non-Reactive (Non-Reactive)
[2021-01-24 08:14] LABS: Basophils # (A) 0.1 k/uL (0-0.2); Basophils % (A) 1 %; Eosinophils # (A) 0.2 k/uL (0-0.7); Eosinophils % (A) 2 %; HCT 26.1 % (34.0-46.0); Hypochromasia Marked; Lymphocytes # (A) 3.6 k/uL (1.0-4.8); Lymphocytes % (A) 27 %; MCH 24.1 pg (25.0-35.0); MCHC 31.4 g/dL (31.0-37.0); MCV 76.8 fL (80.0-100.0); Mean Platelet Volume 9.1; Microcytosis Slight; Monocytes # (A) 0.5 k/uL (0-1.0); Monocytes % (A) 4 %; Neutrophils # (A) 8.6 k/uL (1.3-7.7); Neutrophils % (A) 65 %; Platelet Count 245 k/uL (150-450); Poikilocytosis Slight; RDW 15.8 % (11.5-15.5); WBC 13.3 k/uL (3.8-10.6)
[2021-01-24 08:17] VITALS: BP 131/79; PULSE 99; TEMP 98.7
[2021-01-24] MEDS: SENNOSIDES-DOCUSATE SODIUM 1 EACH TAB PO SCH (08:18)
[2021-01-24 08:42] LABS: HGB 8.2 gm/dL (11.4-16.0)
--- NOTE | 2021-01-24 09:05 | P.DS ---
Providers Date of admission: 01/22/21 23:49 Expected date of discharge: 01/24/21 Attending physician: Neema Bustillo Primary care physician: Stated None - Discharge Diagnosis(es) (1) 36 weeks gestation of Current Visit: No Status: Resolved (2) History of delivery Current Visit: No Status: Acute (3) labor Current Visit: No Status: Resolved (4) delivery, delivered Current Visit: Yes Status: Acute Hospital Course: 25-year-old now presented at 36 weeks and 1 day in active labor. She was complete with a bulging bag. Her behavior was erratic which could've been labor or something else, a urine drug screen done upon admission showed positive for methamphetamines and amphetamines. She underwent a vacuum-assisted vaginal delivery. the first day she was extremely tired and fidgeting with the items on her tray, denies nausea, vomiting, chest pain, shortness of breath or any calf pain. Today she is acting appropriately. I asked her about her urine being positive for methamphetamines and amphetamines and the patient denies using. She says she spends part-time outside and that her legs were covered and mosquito bites. She is examining voiding without difficulty, lochia is decreasing. She would like a tubal ligation we will discuss that in the office. She'll be discharged home day #1 to follow-up with me in 6 weeks. Plan - Discharge Summary New Discharge Prescriptions: New Ibuprofen [Motrin] 600 mg PO Q6HR PRN #30 tab PRN Reason: Mild Pain (Scale 1 To 3) Discharge Medication List Ibuprofen [Motrin] 600 mg PO Q6HR PRN #30 tab 01/24/21 [Rx] Follow up Appointment(s)/Referral(s): Neema Bustillo DO [Doctor of Osteopathic Medicine] - 6 Weeks Discharge Disposition: HOME SELF-CARE
== END 2021-01-24 14:30 | disposition home or self-care (01) | DRG 807 ==
LOC: FBPOP 23:46 → 4FBP 23:49
PROVIDERS: ADMIT Obstetrics & Gynecology; ATTEND Obstetrics & Gynecology
PROC: 10D07Z6 Extraction of Products of Conception, Vacuum, Via Natural or Artificial Opening (ICD-10-PCS; principal; 2021-01-23)
PROC: 10907ZC Drainage of Amniotic Fluid, Therapeutic from Products of Conception, Via Natural or Artificial Opening (ICD-10-PCS; principal; 2021-01-23)
DX: O60.14X0 Preterm labor third trimester with preterm delivery third trimester, not applicable or unspecified (principal); Z37.0 Single live birth; F32.9 Major depressive disorder, single episode, unspecified; O99.344 Other mental disorders complicating childbirth; F41.9 Anxiety disorder, unspecified; O69.81X0 Labor and delivery complicated by cord around neck, without compression, not applicable or unspecified; Z3A.36 36 weeks gestation of pregnancy; Z82.0 Family history of epilepsy and other diseases of the nervous system; W57.XXXA Bitten or stung by nonvenomous insect and other nonvenomous arthropods, initial encounter
CPT/HCPCS: 80306; 85025; 85461; 86762; 86780; 86850; 86900; 86901; 87340; 87390; 88307

== ENCOUNTER 2022-02-24 10:25 | Inpatient (IN) | payer OTHER ==
[2022-02-24] MEDS ORDERED: TERBUTALINE 1 MG/ML VIAL SQ PRN (10:31)
[2022-02-24] MEDS ORDERED: LIDOCAINE 0.5% (PF) 5 MG/ML (50 ML SDV) SQ PRN (10:31)
[2022-02-24] MEDS ORDERED: CARBOPROST TROMETHAMINE 250 MCG/ML 1 ML AMP IM PRN (10:31)
[2022-02-24] MEDS ORDERED: METHYLERGONOVINE 0.2 MG/ML 1 ML AMP IM PRN (10:31)
[2022-02-24] MEDS ORDERED: OXYTOCIN 10 UNIT/ML 1 ML VIAL IM PRN (10:31)
[2022-02-24] MEDS ORDERED: OXYTOCIN 30 UNITS/500 ML NS 30 UNIT in SALINE 1 500ML.BAG IV SCH (10:39)
[2022-02-24] MEDS ORDERED: LACTATED RINGERS 1,000 ML IV SCH (10:45)
--- NOTE | 2022-02-24 11:02 | P.HPOB ---
History of Present Illness H&P Date: 02/24/22 Chief Complaint: "I'm having a baby" This is a 26-year-old white female 8 para 6117 last menstrual period unknown, EDC unknown, who presents to labor and delivery with no care stating she needs to push. She denies fluid leakage or vaginal bleeding. Past medical history she states she states is essentially negative. Past surgical history cervical biopsy in the remote past, pathology unknown. Current medications none. ALLERGIES none known. Social history I am told that the patient's previous babies have been taken away from her per rn social work. She admits to long-term tobacco smoking, now sleeping. She had 2 amphetamine use, denies other drug use or alcohol. She is single, unemployed. Family history patient's father recently at age 55 with an unknown staff. She has 2 sisters, one of whom age 39 and has a seizure disorder. She denies any other significant family history. On exam patient is 5 foot 5 inches, 150 pounds, blood pressure 131/81, pulse 100, temperature 36.6, 100% O2 saturation. She has multiple tattoos across the body. She has very poor dentition. The rest of the examination is difficult, patient is thrashing about the bed stating that she has to push. On admission she is 9 cm dilated, bulging membranes, vertex presentation, +1 station. heart rate appears reassuring. Impression: No care, here in active labor, all signs preliminarily reassuring. Plan: For artificial amniorrhexis and delivery. All labs will be drawn including a urine drug screen. access services librarian consult. Review of Systems Constitutional: Reports as per HPI Past Medical History Past Medical History: No Reported History Additional Past Medical History / Comment(s): . She has had 4 previous deliveries. History of Any Multi-Drug Resistant Organisms: None Reported Past Surgical History: No Surgical Hx Reported Past Anesthesia/Blood Transfusion Reactions: No Reported Reaction Past Psychological History: Anxiety, Depression Past Alcohol Use History: None Reported Past Drug Use History: None Reported - Past Family History Sister(s) Family Medical History: Seizure Disorder Father Family Medical History: No Reported History Medications and Allergies Home Medications Medication Instructions Recorded Confirmed Type Ibuprofen [Motrin] 600 mg PO Q6HR PRN #30 tab 01/24/21 Rx Allergies Allergy/AdvReac Type Severity Reaction Status Date / Time No Known Allergies Allergy Verified 02/24/22 10:29 Exam Intake and Output 02/23/22 02/24/22 02/24/22 22:59 06:59 14:59 Other: Weight 68.039 kg See dictation under HPI please Assessment and Plan Assessment: No care active labor. Impending delivery. Plan: Artificial amniorrhexis, vaginal delivery. All labs will be drawn. access services librarian consult will be ordered. Urine drug screen. Time with Patient: Less than 30
--- NOTE | 2022-02-24 11:04 | P.PROBDLV ---
Vaginal Delivery Note - . Vaginal Delivery Note: This is a 26-year-old white female 8 para 6117 last menstrual period unknown, estimated date of confinement unknown, no care, who presented to labor and delivery wanting to push. Please see my dictated history and physical for details. Upon entering the room patient is out of control. IV is started and labs are drawn. Checking the patient vaginally, she is completely dilated and +1 station, vertex presentation. Artificial amniorrhexis revealed clear fluid at 1037 hours. Patient immediately pushed and the infant's head crowned on the perineal body. He restituted accordingly. The oropharynx, nasopharynx, and external nares were bulb suctioned. Patient officially delivered a liveborn male at 1039 hours. Umbilical cord was doubly clamped and ligated, he was handed to waiting nurses for evaluation where scores of 8 and 9 at one and 5 minutes respectively were given. The placenta delivered spontaneously at 1042 hrs. after collecting blood from the umbilical cord. Placenta appears intact, trivascular cord. It will be sent to the lab for further evaluation. At this time the patient begins to resume some control. Careful inspection of the cervix, vagina, perineum, periurethral, and perirectal areas revealed no significant lacerations or defects. No suturing was needed. Fundus is firm and in the midline, symmetric and 18 week size upon completion of delivery. Estimated blood loss 200 mL's. Patient is requesting circumcision for her son. fire services plumber consult will be obtained.
[2022-02-24] MEDS ORDERED: ZOLPIDEM 5 MG TAB PO PRN (11:05)
[2022-02-24] MEDS ORDERED: LANOLIN CREAM 5 GM TUBE TOPICAL PRN (11:05)
[2022-02-24] MEDS ORDERED: SIMETHICONE 80 MG CHEWABLE PO PRN (11:05)
[2022-02-24] MEDS ORDERED: HYDROCORTISONE 2.5% RECTAL CREAM 30 GM TUBE RECTAL PRN (11:05)
[2022-02-24] MEDS ORDERED: ACETAMINOPHEN TAB 325 MG TAB PO PRN (11:05)
[2022-02-24] MEDS ORDERED: diphenhydrAMINE 50 MG/ML 1 ML VIAL IVP PRN ×2 (11:05)
[2022-02-24] MEDS ORDERED: diphenhydrAMINE 25 MG CAP PO PRN (11:05)
[2022-02-24] MEDS ORDERED: BENZOCAINE/MENTHOL SPRAY 1 GM/SPRAY AEROSOL TOPICAL PRN (11:05)
[2022-02-24] MEDS ORDERED: diphenhydrAMINE 50 MG CAP PO PRN (11:05)
[2022-02-24] MEDS: IBUPROFEN 600 MG TAB PO SCH ×3 (11:30→20:21)
[2022-02-24 11:33] LABS: Basophils # (A) 0.1 k/uL (0-0.2); Basophils % (A) 1 %; Eosinophils # (A) 0.1 k/uL (0-0.7); Eosinophils % (A) 1 %; HCT 29.2 % (34.0-46.0); Hypochromasia Marked; Lymphocytes # (A) 2.1 k/uL (1.0-4.8); Lymphocytes % (A) 24 %; MCH 23.1 pg (25.0-35.0); MCHC 30.9 g/dL (31.0-37.0); MCV 74.7 fL (80.0-100.0); Mean Platelet Volume 9.9; Microcytosis Slight; Monocytes # (A) 0.3 k/uL (0-1.0); Monocytes % (A) 3 %; Neutrophils # (A) 6.1 k/uL (1.3-7.7); Neutrophils % (A) 68 %; Platelet Count 252 k/uL (150-450); Poikilocytosis Slight; RBC 3.91 m/uL (3.80-5.40); RDW 15.4 % (11.5-15.5); WBC 8.9 k/uL (3.8-10.6)
[2022-02-24 11:36] LABS: Appearance,Urine Turbid (Clear); Bacteria,Urine Many /hpf; Bilirubin,Urine Negative (Negative); Blood,Urine Small (Negative); Budding Yeast,Urine Moderate /hpf; Color,Urine Yellow; Glucose,Urine (UA) Negative (Negative); Ketones,Urine 2+ (Negative); Leukocyte Esterase,Urine Large (Negative); Mucus,Urine Many /hpf; Nitrite,Urine Negative (Negative); PH, Urine 6.5 (5.0-8.0); Protein,Urine 1+ (Negative); RBC,Urine 9 /hpf (0-5); Specific Gravity,Urine 1.017 (1.001-1.035); Squamous Epithelial Cell,Urine 4 /hpf (0-4); Urobilinogen,Urine <2.0 mg/dL (<2.0); WBC,Urine >182 /hpf (0-5)
[2022-02-24 11:49] LABS: Amphetamine Screen,Urine Detected (NotDetected); Barbiturate Screen,Urine Not Detected (NotDetected); Benzodiazepines Screen,Urine Not Detected (NotDetected); Cocaine Screen,Urine Not Detected (NotDetected); Methadone Screen, Urine Not Detected (NotDetected); Opiate Screen,Urine Not Detected (NotDetected); Oxycodone Screen, Urine Not Detected (NotDetected); Phencyclidine Screen,Urine Not Detected (NotDetected); Tricyclic Antidepressant,Urine Not Detected (NotDetected); Urn Cannabinoid Scrn Not Detected (NotDetected)
[2022-02-24] MEDS ORDERED: Rhogam IMMUNE GLOBULIN 1,500 UNIT/1 ML IM ONE (15:08)
[2022-02-24] MEDS: CEPHALEXIN 500 MG CAP PO SCH (17:54)
[2022-02-24 18:24] LABS: Hepatitis B Surface Antigen Nonreactive (Nonreactive)
[2022-02-24] MEDS: SENNOSIDES-DOCUSATE SODIUM 1 EACH TAB PO SCH (23:00)
[2022-02-25 04:49] VITALS: PULSE 90
[2022-02-25] MEDS: CEPHALEXIN 500 MG CAP PO SCH (04:49)
[2022-02-25] MEDS: IBUPROFEN 600 MG TAB PO SCH ×2 (04:52→13:10)
--- NOTE | 2022-02-25 08:01 | P.DS ---
Providers Date of admission: 02/24/22 10:31 Expected date of discharge: 02/25/22 Attending physician: Vonda Quintanilla Primary care physician: Stated None Hospital Course: This is a 26-year-old 8 para 6016 unknown last menstrual period, unknown EDC who presented to labor and delivery with bulging membranes in active labor. The patient has had no care, she does admit to amphetamine use. Blood type is AB-, please see my dictated history and physical for details. Artificial amniorrhexis revealed clear fluid patient went on to precipitously deliver a liveborn male infant with scores of 8 and 9 at one and 5 minutes respectively. appeared to be approximately 35-36 weeks per pediatricians evaluation. He weighed 6 lbs. 13 oz. or 3080 g. Estimated blood loss at time of delivery 200 mL, no stitching deemed necessary. Please see dictated delivery note for details. labs were drawn, rubella status appears to be immune. Urine is suspicious for UTI, patient was started on Keflex 500 mg twice daily. This morning she is voiding, ambulating, passing flatus without difficulty. Urine drug screen came back positive for amphetamines as well as methamphetamines. [place] infant is staying in the nursery at this time, older adult social work specialist is involved. Patient however is judged to be in reasonably good discharge home condition. She will follow-up with me in the office in 6 weeks. I have stressed to her no intercourse tampons or douching. 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 Contraceptive options have been discussed, and we will further define this in the office. Assessment: Doing well first day Patient Condition at Discharge: Fair Plan - Discharge Summary Discharge Rx Participant: No New Discharge Prescriptions: No Action Ibuprofen [Motrin] 600 mg PO Q6HR PRN #30 tab PRN Reason: Mild Pain (Scale 1 To 3) Discharge Medication List Ibuprofen [Motrin] 600 mg PO Q6HR PRN #30 tab 01/24/21 [Rx] Follow up Appointment(s)/Referral(s): Vonda Quintanilla MD [STAFF PHYSICIAN] - 6 Weeks Discharge Disposition: HOME SELF-CARE
[2022-02-25] MEDS: SENNOSIDES-DOCUSATE SODIUM 1 EACH TAB PO SCH (08:44)
[2022-02-25 08:48] VITALS: BP 113/69; RESP 16; TEMP 98.2
== END 2022-02-25 13:20 | disposition home or self-care (01) | DRG 805 ==
LOC: FBPOP 10:25 → 4FBP 10:31
PROVIDERS: ADMIT Obstetrics & Gynecology; ATTEND Obstetrics & Gynecology
PROC: 10E0XZZ Delivery of Products of Conception, External Approach (ICD-10-PCS; principal; 2022-02-24)
PROC: 4A0HXCZ Measurement of Products of Conception, Cardiac Rate, External Approach (ICD-10-PCS; 2022-02-24)
DX: O62.3 Precipitate labor (principal); O60.14X0 Preterm labor third trimester with preterm delivery third trimester, not applicable or unspecified; Z37.0 Single live birth; O75.3 Other infection during labor; O99.324 Drug use complicating childbirth; N39.0 Urinary tract infection, site not specified; F32.A Depression, unspecified; F41.9 Anxiety disorder, unspecified; O90.81 Anemia of the puerperium; O99.344 Other mental disorders complicating childbirth; F15.90 Other stimulant use, unspecified, uncomplicated; D64.9 Anemia, unspecified; Z3A.36 36 weeks gestation of pregnancy; Z37.1 Single stillbirth
CPT/HCPCS: 80306; 81001; 82947; 85025; 85461; 86762; 86780; 86850; 86900; 86901; 87340; 87390; 88307; 99213

== ENCOUNTER 2023-07-23 00:05 | Inpatient (IN) | payer OTHER ==
[2023-07-23] MEDS: SODIUM CHLORIDE 0.9% 1,000 ML IV ONE ×3 (00:46→02:36)
[2023-07-23 01:23] LABS: Basophils % (A) 0 %; Eosinophils % (A) 0 %; HGB 8.3 gm/dL (11.4-16.0); Lymphocytes # (A) 0.9 k/uL (1.0-4.8); Lymphocytes % (A) 5 %; MCH 30.2 pg (25.0-35.0); MCHC 34.8 g/dL (31.0-37.0); MCV 86.9 fL (80.0-100.0); Mean Platelet Volume 9.2; Monocytes # (A) 0.6 k/uL (0-1.0); Monocytes % (A) 3 %; Neutrophils # (A) 15.1 k/uL (1.3-7.7); Neutrophils % (A) 90 %; RBC 2.76 m/uL (3.80-5.40); RDW 13.7 % (11.5-15.5); WBC 16.7 k/uL (3.8-10.6)
--- NOTE | 2023-07-23 01:30 | ED ---
Female Urogenital HPI - General Source: patient, EMS Mode of arrival: EMS <Joyce Rodriguze - Last Filed: 07/23/23 04:52> <Balbir Blankenship - Last Filed: 07/23/23 05:00> - General Chief complaint: Vaginal Bleeding Stated complaint: BLEEDING Time Seen by Provider: 07/23/23 00:24 - History of Present Illness Initial comments: 28-year-old female presenting with chief complaint of vaginal bleeding. Patient is a A2, she had a procedural performed at [facility] at 12:00 this afternoon. She states that this evening she had sudden onset heavy vaginal bleeding. She states that she did faint for a moment. She was brought in by EMS. She is still bleeding heavily when she arrives to our facility. She admits to cramping. Her LMP was April 22. No blood thinners. (Joyce Rodriguez) - Related Data Allergies Allergy/AdvReac Type Severity Reaction Status Date / Time No Known Allergies Allergy Verified 07/23/23 00:15 Review of Systems ROS Other: All systems not noted in ROS Statement are negative. <Joyce Rodriguez - Last Filed: 07/23/23 04:52> ROS Other: All systems not noted in ROS Statement are negative. <Balbir Blankenship - Last Filed: 07/23/23 05:00> ROS Statement: Those systems with pertinent positive or pertinent negative responses have been documented in the HPI. Past Medical History Past Medical History: No Reported History Additional Past Medical History / Comment(s): . She has had 4 previous deliveries. History of Any Multi-Drug Resistant Organisms: None Reported Past Surgical History: No Surgical Hx Reported Past Anesthesia/Blood Transfusion Reactions: No Reported Reaction Past Psychological History: Anxiety, Depression Smoking Status: Vaper Past Alcohol Use History: None Reported Past Drug Use History: None Reported - Past Family History Sister(s) Family Medical History: Seizure Disorder Father Family Medical History: No Reported History <Joyce Rodriguez - Last Filed: 07/23/23 04:52> General Exam General appearance: alert, in no apparent distress Head exam: Present: atraumatic, normocephalic Eye exam: Present: normal appearance Neck exam: Present: normal inspection Respiratory exam: Present: normal lung sounds bilaterally. Absent: respiratory distress, wheezes, rales, rhonchi, stridor Cardiovascular Exam: Present: regular rate, normal rhythm, normal heart sounds. Absent: systolic murmur, diastolic murmur, rubs, gallop, clicks Speculum exam: Present: vaginal bleeding (There is a slow trickling of blood from the cervical os, it takes about 10 ceron swabs to clear the vaginal vault.) Neurological exam: Present: alert, oriented X3 Psychiatric exam: Present: normal affect, normal mood Skin exam: Present: warm, dry <Joyce Rodriguez - Last Filed: 07/23/23 04:52> Course Vital Signs 07/23/23 07/23/23 07/23/23 00:08 00:30 01:00 Temperature 98.8 F Pulse Rate 84 80 86 Respiratory 18 18 18 Rate Blood Pressure 102/57 98/69 103/57 O2 Sat by Pulse 100 100 100 Oximetry 07/23/23 07/23/23 07/23/23 01:30 02:00 02:30 Temperature Pulse Rate 84 84 85 Respiratory 18 18 18 Rate Blood Pressure 100/61 113/58 109/56 O2 Sat by Pulse 100 100 100 Oximetry 07/23/23 03:00 Temperature Pulse Rate 85 Respiratory 18 Rate Blood Pressure 113/55 O2 Sat by Pulse 100 Oximetry Medical Decision Making - Lab Data Result diagrams: 07/23/23 01:15 07/23/23 01:15 <Joyce Rodriguez - Last Filed: 07/23/23 04:52> - Lab Data Result diagrams: 07/23/23 01:15 07/23/23 01:15 <Balbir Blankenship - Last Filed: 07/23/23 05:00> - Medical Decision Making Was pt. sent in by a medical professional or institution (, PA, HAND ASSEMBLER FOR [employer], urgent care, hospital, or alf...) When possible be specific @ -No Did you speak to anyone other than the patient for history (EMS, parent, family, police, friend...)? What history was obtained from this source @ -No Did you review nursing and triage notes (agree or disagree)? Why? @ -I reviewed and agree with nursing and triage notes Were old charts reviewed (outside hosp., previous admission, EMS record, old EKG, old radiological studies, urgent care reports/EKG's, alf records)? Report findings @ -No old charts were reviewed Differential Diagnosis (chest pain, altered mental status, abdominal pain women, abdominal pain men, vaginal bleeding, weakness, fever, dyspnea, syncope, headache, dizziness, GI bleed, back pain, seizure, CVA, palpatations, mental health, musculoskeletal)? @ -[facility] Differential Vaginal Bleeding: Spontaneous , threatened , molar , ectopic , bloody show, incompetent cervix, abruptioplacenta, placenta previa, uterine rupture, dysfunctional uterine bleeding, hemorrhage, uterine fibroids. ... This is not meant to be an all-inclusive list EKG interpreted by me (3pts min.). @ -As above X-rays interpreted by me (1pt min.). @ -None done CT interpreted by me (1pt min.). @ -None done U/S interpreted by me (1pt. min.). @ -Ultrasound shows the endometrial stripe is thickened measuring 5.4 cm with heterogenous material within it. The appearance is nonspecific. No significant internal blood flow is seen. Consider thrombus/hematoma What testing was considered but not performed or refused? (CT, X-rays, U/S, labs)? Why? @ -None What meds were considered but not given or refused? Why? @ -None Did you discuss the management of the patient with other professionals (professionals i.e. , PA, HAND ASSEMBLER FOR [employer], lab, RT, psych nurse, licensed master social worker, military lawyer, teacher, adult parole officer, case folder)? Give summary @ -I spoke with [facility]UCKER on-call Dr. Rao who came to room 13 to evaluate the patient and determined that she will be going to the OR for D&C Was smoking cessation discussed for >3mins.? @ -No Was critical care preformed (if so, how long)? @ -No Were there social determinants of health that impacted care today? How? (Homelessness, low income, unemployed, alcoholism, drug addiction, transpor tation, low edu. Level, literacy, decrease access to med. care, penitentiary, rehab)? @ -No Was there de-escalation of care discussed even if they declined (Discuss DNR or withdrawal of care, Hospice)? DNR status @ -No What co-morbidities impacted this encounter? (DM, HTN, Smoking, COPD, CAD, Cancer, CVA, ARF, Chemo, Hep., AIDS, mental health diagnosis, sleep apnea, morbid obesity)? @ -None Was patient admitted / discharged? Hospital course, mention meds given and route, prescriptions, significant lab abnormalities, going to OR and other pertinent info. @ -28-year-old female presenting with chief complaint of vaginal bleeding. Patient had a procedural termination at [facility] this afternoon. She had increased bleeding at home today. She did have 1 syncopal episode. Upon arrival the patient has saturated her bottoms and multiple blue pads on the bed. Pelvic exam is conducted, there is a very large amount of blood seen in the vaginal vault, after 10+ ceron swabs I am able to see the cervix and os which does not appear to be open. There is no active hemorrhage seen on exam. WBC 16.7. Hemoglobin 8.3. Elevated PT INR and APTT. Platelets are 90. Ultrasound shows evidence of thrombus/hematoma with endometrial stripe thickening measuring 5.4 cm. Patient was evaluated by [facility] PLUCKER on-call Dr. Rao. Patient will be admitted and taken to the OR for D&C. Patient is agreeable with this plan. I discussed this case with my attending Dr. Blankenship Undiagnosed new problem with uncertain prognosis? @ -No Drug Therapy requiring intensive monitoring for toxicity (Heparin, Nitro, Insulin, Cardizem)? @ -No Were any procedures done? @ -No Diagnosis/symptom? @ -Vaginal bleeding Acute, or Chronic, or Acute on Chronic? @ -Acute Uncomplicated (without systemic symptoms) or Complicated (systemic symptoms)? @ -Complicated Side effects of treatment? @ -No Exacerbation, Progression, or Severe Exacerbation? @ -No Poses a threat to life or bodily function? How? (Chest pain, USA, ME, pneumonia, PE, COPD, DKA, ARF, appy, cholecystitis, CVA, Diverticulitis, Homicidal, Debbi cidal, threat to staff... and all critical care pts) @ -Yes (Joyce Rodriguez) Dr. Rao was notified following results of laboratory studies and US. we both evaluated the imaging as well as laboratory studies after she evaluated the patient who was still bleeding vaginally. She has plans to take the patient for D&C. Patient has normal liver labs however coags are elevated and platelets are low. There is concern for DIC at this time. She did place initial orders but patient still requires D&C. She was other was in agreement the plan. Patient will be disposition to the operating room with plans for admitting. I was contacted regarding the results of the fibrinogen and it returned critically low. Lab made multiple attempts to contact the OR. I did work with our product support representative and have them contact the lab who states that they were able to contact the OR team and they are aware of the low fibrinogen level. Diagnosis/symptom? @ -Concern for DIC Acute, or Chronic, or Acute on Chronic? @ -Acute Uncomplicated (without systemic symptoms) or Complicated (systemic symptoms)? @ -Complicated Side effects of treatment? @ -None Exacerbation, Progression, or Severe Exacerbation] @ -No Poses a threat to life or bodily function? @ -Yes (Balbir Blankenship) - Lab Data Lab Results 07/23/23 07/23/23 07/23/23 Range/Units 01:15 01:15 01:15 WBC 16.7 H (3.8-10.6) k/uL RBC 2.76 L (3.80-5.40) m/uL Hgb 8.3 L (11.4-16.0) gm/dL Hct 24.0 L (34.0-46.0) % MCV 86.9 (80.0-100.0) fL MCH 30.2 (25.0-35.0) pg MCHC 34.8 (31.0-37.0) g/dL RDW 13.7 (11.5-15.5) % Plt Count 90 L (150-450) k/uL MPV 9.2 Neutrophils % 90 % Lymphocytes % 5 % Monocytes % 3 % Eosinophils % 0 % Basophils % 0 % Neutrophils # 15.1 H (1.3-7.7) k/uL Lymphocytes # 0.9 L (1.0-4.8) k/uL Monocytes # 0.6 (0-1.0) k/uL Eosinophils # 0.0 (0-0.7) k/uL Basophils # 0.0 (0-0.2) k/uL Manual Slide Review Performed Ovalocytes Present PT 36.6 H (10.0-12.5) sec INR 3.7 H (<1.2) APTT 35.3 H (22.0-30.0) sec Fibrinogen (200-500) mg/dL Sodium 132 L (137-145) mmol/L Potassium 4.0 (3.5-5.1) mmol/L Chloride 110 H (98-107) mmol/L Carbon Dioxide 17 L (22-30) mmol/L Anion Gap 5 mmol/L BUN 17 (7-17) mg/dL Creatinine 0.89 (0.52-1.04) mg/dL Est GFR (CKD-EPI)AfAm >90 (>60 ml/min/1.73 sqM) Est GFR (CKD-EPI)NonAf 88 (>60 ml/min/1.73 sqM) Glucose 95 (74-99) mg/dL Calcium 7.5 L (8.4-10.2) mg/dL Total Bilirubin 0.8 (0.2-1.3) mg/dL AST 24 (14-36) U/L ALT 9 (4-34) U/L Alkaline Phosphatase 46 (38-126) U/L Total Protein 5.0 L (6.3-8.2) g/dL Albumin 2.5 L (3.5-5.0) g/dL HCG, Quant 22304.8 mIU/mL Spec Expiration Date 07/23/23 07/23/23 07/23/23 Range/Units 01:35 02:57 02:57 WBC (3.8-10.6) k/uL RBC (3.80-5.40) m/uL Hgb (11.4-16.0) gm/dL Hct (34.0-46.0) % MCV (80.0-100.0) fL MCH (25.0-35.0) pg MCHC (31.0-37.0) g/dL RDW (11.5-15.5) % Plt Count (150-450) k/uL MPV Neutrophils % % Lymphocytes % % Monocytes % % Eosinophils % % Basophils % % Neutrophils # (1.3-7.7) k/uL Lymphocytes # (1.0-4.8) k/uL Monocytes # (0-1.0) k/uL Eosinophils # (0-0.7) k/uL Basophils # (0-0.2) k/uL Manual Slide Review Ovalocytes PT 21.6 H (10.0-12.5) sec INR 2.2 H (<1.2) APTT 31.9 H (22.0-30.0) sec Fibrinogen <70 L* (200-500) mg/dL Sodium (137-145) mmol/L Potassium (3.5-5.1) mmol/L Chloride (98-107) mmol/L Carbon Dioxide (22-30) mmol/L Anion Gap mmol/L BUN (7-17) mg/dL Creatinine (0.52-1.04) mg/dL Est GFR (CKD-EPI)AfAm (>60 ml/min/1.73 sqM) Est GFR (CKD-EPI)NonAf (>60 ml/min/1.73 sqM) Glucose (74-99) mg/dL Calcium (8.4-10.2) mg/dL Total Bilirubin (0.2-1.3) mg/dL AST (14-36) U/L ALT (4-34) U/L Alkaline Phosphatase (38-126) U/L Total Protein (6.3-8.2) g/dL Albumin (3.5-5.0) g/dL HCG, Quant mIU/mL Spec Expiration Date 07/26/2023 - 2334 Disposition Time of Disposition: 03:15 <Joyce Rodriguez - Last Filed: 07/23/23 04:52> <Balbir Blankenship - Last Filed: 07/23/23 05:00> Clinical Impression: Vaginal bleeding, DIC (disseminated intravascular coagulation) Disposition: ADMITTED IP TO THIS [facility] Condition: Serious
[2023-07-23 01:36] LABS: ALT 9 U/L (4-34); AST 24 U/L (14-36); African American GFR (CKD) >90 (>60 ml/min/1.73 sqM); Albumin 2.5 g/dL (3.5-5.0); Alkaline Phosphatase 46 U/L (38-126); Anion Gap 5 mmol/L; Blood Urea Nitrogen 17 mg/dL (7-17); Calcium 7.5 mg/dL (8.4-10.2); Carbon Dioxide 17 mmol/L (22-30); Chloride 110 mmol/L (98-107); Glucose 95 mg/dL (74-99); Non-African American GFR(CKD) 88 (>60 ml/min/1.73 sqM); Ovalocytes Present; Platelet Count 90 k/uL (150-450); Sodium 132 mmol/L (137-145); Total Bilirubin 0.8 mg/dL (0.2-1.3)
--- NOTE | 2023-07-23 01:36 | US ---
EXAM: US Pelvis Transabdominal, Complete CLINICAL HISTORY: US Reason: vag bleed TECHNIQUE: Real-time complete transabdominal pelvic ultrasound with image documentation. COMPARISON: No relevant prior studies available. FINDINGS: Uterus/cervix: The endometrial stripe is thickened measuring 5.4 cm with heterogenous material within it. The uterus measures 15.4 x 8.2 x 11.5 cm and is anteverted. No myometrial mass. Right ovary: The right ovary measures 2.1 x 2.6 x 1.5 cm. Normal blood flow. Left ovary: The left ovary measures 3.6 x 1.7 x 2.6 centimeters. Normal blood flow. Free fluid: Small amount of free fluid in the cul-de-sac. Bladder: Unremarkable as visualized. Wall is normal thickness for degree of distention. IMPRESSION: The endometrial stripe is thickened measuring 5.4 cm with heterogenous material within it. The appearance is nonspecific. No significant internal blood flow is seen. Consider thrombus/hematoma.
[2023-07-23 01:47] LABS: INR 3.7 (<1.2); Partial Thromboplastin Time 35.3 sec (22.0-30.0); Prothrombin Time 36.6 sec (10.0-12.5)
[2023-07-23 02:49] LABS: HCG,Quantitative Serum 36310.8 mIU/mL
[2023-07-23 03:10] LABS: INR 2.2 (<1.2); Partial Thromboplastin Time 31.9 sec (22.0-30.0); Prothrombin Time 21.6 sec (10.0-12.5)
[2023-07-23] MEDS ORDERED: NALOXONE 0.4 MG/ML 1 ML VIAL IV PRN (03:11)
--- NOTE | 2023-07-23 03:27 | P.HPOB ---
History of Present Illness H&P Date: 07/23/23 Chief Complaint: Vaginal bleeding status post termination of This is a 28-year-old female 8 para [id number] who had a termination at [facility] in [place] at about 12:30 PM on 07/22/2023. She stated that her bleeding was fairly heavy at home and therefore she decided to come in. She also was feeling dizzy and had a syncopal episode at home. She states she feels nauseated and also has noted her gums have started to bleed. This is a new finding for her. She does state her blood type is negative and she did have RhoGAM after the procedure. She states she was about 13 weeks when she underwent a surgical . She has a history of one other but she was further along and she said at that time they did put her to sleep. Pelvic ultrasound shows lining thickness of 5.3 cm with possible blood clot or retained products. Obstetrical history: Gynecologic history: No history of sexual transmitted diseases. Review of Systems Constitutional: Reports fatigue, Reports lethargy Eyes: denies blurred vision, denies pain Ears, nose, mouth and throat: Reports bleeding gums Cardiovascular: Reports shortness of breath, Denies chest pain Respiratory: Denies cough Gastrointestinal: Reports abdominal pain (Lower abdominal cramping) Genitourinary: Reports abnormal vaginal bleeding, Reports pelvic pain Musculoskeletal: Denies myalgias Integumentary: Denies pruritus, Denies rash Neurological: Denies numbness, Denies weakness Past Medical History Past Medical History: No Reported History History of Any Multi-Drug Resistant Organisms: None Reported Additional Past Surgical History / Comment(s): History of 2 terminations of pregnancies a last of which was yesterday. Past Anesthesia/Blood Transfusion Reactions: No Reported Reaction Past Psychological History: Anxiety, Depression Smoking Status: Vaper Past Alcohol Use History: None Reported Past Drug Use History: None Reported Additional Drug Use History / Comment(s): She does have a history of narcotic abuse. She states she has been sober for the last 6-7 months. - Past Family History Sister(s) Family Medical History: Seizure Disorder Father Family Medical History: No Reported History Medications and Allergies Allergies Allergy/AdvReac Type Severity Reaction Status Date / Time No Known Allergies Allergy Verified 07/23/23 00:15 Exam Osteopathic Statement: *. No significant issues noted on an osteopathic structural exam other than those noted in the History and Physical/Consult. Vital Signs Temp Pulse Resp BP Pulse Ox 07/23/23 03:00 85 18 113/55 100 07/23/23 02:30 85 18 109/56 100 07/23/23 02:00 84 18 113/58 100 07/23/23 01:30 84 18 100/61 100 07/23/23 01:00 86 18 103/57 100 07/23/23 00:30 80 18 98/69 100 07/23/23 00:08 98.8 F 84 18 102/57 100 Intake and Output 07/22/23 07/22/23 07/23/23 14:59 22:59 06:59 Other: Weight 63.503 kg Gen.: Pale appearing female in no acute distress HEENT: Poor dentition with missing teeth Heart: Regular rate and rhythm Lungs: Clear to auscultation bilaterally Abdomen: Soft, mild tenderness in her lower abdomen. Speculum exam: A large amount of blood is noted in the vault and difficult to see on speculum exam. Pelvic exam: Cervical os appears closed and uterus feels slightly enlarged and firm with mild tenderness to palpation. No adnexal masses are palpated. Extremities: Negative Homans Results Result Diagrams: 07/23/23 01:15 07/23/23 01:15 Abnormal Lab Results - Last 24 Hours (Table) 07/23/23 07/23/23 07/23/23 Range/Units 01:15 01:15 01:15 WBC 16.7 H (3.8-10.6) k/uL RBC 2.76 L (3.80-5.40) m/uL Hgb 8.3 L (11.4-16.0) gm/dL Hct 24.0 L (34.0-46.0) % Plt Count 90 L (150-450) k/uL Neutrophils # 15.1 H (1.3-7.7) k/uL Lymphocytes # 0.9 L (1.0-4.8) k/uL PT 36.6 H (10.0-12.5) sec INR 3.7 H (<1.2) APTT 35.3 H (22.0-30.0) sec Sodium 132 L (137-145) mmol/L Chloride 110 H (98-107) mmol/L Carbon Dioxide 17 L (22-30) mmol/L Calcium 7.5 L (8.4-10.2) mg/dL Total Protein 5.0 L (6.3-8.2) g/dL Albumin 2.5 L (3.5-5.0) g/dL 07/23/23 Range/Units 02:57 WBC (3.8-10.6) k/uL RBC (3.80-5.40) m/uL Hgb (11.4-16.0) gm/dL Hct (34.0-46.0) % Plt Count (150-450) k/uL Neutrophils # (1.3-7.7) k/uL Lymphocytes # (1.0-4.8) k/uL PT 21.6 H (10.0-12.5) sec INR 2.2 H (<1.2) APTT 31.9 H (22.0-30.0) sec Sodium (137-145) mmol/L Chloride (98-107) mmol/L Carbon Dioxide (22-30) mmol/L Calcium (8.4-10.2) mg/dL Total Protein (6.3-8.2) g/dL Albumin (3.5-5.0) g/dL Assessment and Plan (1) Acute blood loss anemia Current Visit: Yes Status: Acute Code(s): D62 - ACUTE POSTHEMORRHAGIC ANEMIA SNOMED Code(s): 079904310 (2) Thrombocytopenia Current Visit: Yes Status: Acute Code(s): D69.6 - THROMBOCYTOPENIA, UNSPECIFIED SNOMED Code(s): 306927765 (3) complicated by delayed or excessive hemorrhage Current Visit: Yes Status: Acute Code(s): O03.6 - DELAYED OR EXCESS HEMOR FOL COMPLETE OR UNSP SPON SNOMED Code(s): 062758021 (4) Vaginal bleeding Current Visit: Yes Status: Acute Code(s): N93.9 - ABNORMAL UTERINE AND VAGINAL BLEEDING, UNSPECIFIED SNOMED Code(s): 915363826 Plan: I have discussed the need for surgical intervention with the patient. I have discussed suction dilation and curettage in detail including risks and benefits. I have also advised one unit of packed red blood cells due to her symptomatic anemia and continued bleeding. She has consented to transfusion. I have discussed the risks, benefits, and alternative therapies for the above- mentioned procedure and for both sedation/anesthesia as well as necessary blood products administration, if indicated, as they pertain to this patient. The patient has indicated her understanding and acceptance of the risks and procedur es discussed.
[2023-07-23] MEDS ORDERED: PHENYLEPHRINE-0.9% NACL SYG 1,000 MCG/10 ML SYRINGE ONE (04:09)
[2023-07-23] MEDS ORDERED: DEXAMETHASONE SOD PHOSPHATE 4 MG/ML 1 ML VIAL ONE (04:09)
[2023-07-23] MEDS ORDERED: PROPOFOL 10 MG/ML 20 ML VIAL IV ONE (04:09)
[2023-07-23] MEDS ORDERED: ALBUMIN HUMAN 5% (12.5gm) 250 ML BOTTLE IVPB ONE (04:09)
[2023-07-23] MEDS ORDERED: ONDANSETRON 4 MG/2 ML VIAL ONE (04:09)
[2023-07-23] MEDS ORDERED: fentaNYL (PF) 50 MCG/ML 2 ML AMP ONE (04:09)
[2023-07-23] MEDS ORDERED: LIDOCAINE 1% INJ 10MG/ML (20 ML MDV) ONE (04:09)
[2023-07-23] MEDS ORDERED: SUCCINYLCHOLINE CHLORIDE 200 MG/10 ML VIAL IV ONE (04:09)
[2023-07-23] MEDS: LACTATED RINGERS 1,000 ML IV ONE (04:16)
--- NOTE | 2023-07-23 05:00 | P.OP ---
Date of Procedure: 07/23/23 Preoperative Diagnosis: Status post voluntary termination of Acute blood loss anemia Retained products of conception Postoperative Diagnosis: Same Procedure(s) Performed: Suction dilation and curettage Anesthesia: SILVANA Surgeon: Karmen Rao Estimated Blood Loss (ml): 25 (Approximately 300 mL of blood was evacuated from the uterus) Pathology: other (Products of conception) Condition: critical Disposition: floor Indications for Procedure: This is a 28-year-old female 8 para 6 who underwent a voluntary termination of with [facility]. She arrived with syncope at home and heavy bleeding. Ultrasound showed possible retained products of conception with the endometrial thickness of 5 cm. Patient was noted to be actively bleeding in the emergency room and therefore emergent dilation and curettage is recommended. Patient is agreeable and agreeable to blood products. I have discussed the risks, benefits, and alternative therapies for the above- mentioned procedure and for both sedation/anesthesia as well as necessary blood products administration, if indicated, as they pertain to this patient. The patient has indicated her understanding and acceptance of the risks and procedures discussed. Operative Findings: Uterus is enlarged to 15 cm. No adnexal masses are palpated. A steady trickle of thin blood is noted at the cervical os. A large amount of products of conception are obtained. Description of Procedure: The patient is taken to the operating room where she is placed in the dorsal lithotomy position. She is prepped and draped in the normal sterile fashion. Her bladder is drained with a catheter. Examination is performed under anesthesia. Uterus is found to be slightly enlarged and mid position with no adnexal masses palpated. Next a weighted speculum was placed in the patient's vagina and she was placed in slight Trendelenburg position. A right angle retractor was used to visualize the cervix and then the anterior lip of the cervix is grasped with an Allis clamp. A steady trickle of thin-appearing blood was noted to be coming from the cervical os. Uterus is sounded to 15 cm. Cervix is gently dilated with Church dilators until a suction curet could be placed. A 12 mm curved suction curet was placed and suction curettage was performed with a large amount of tissue obtained. Sharp curettage was gently performed after this. Suction curetting was performed one further time to remove any other blood clot. No active bleeding is noted at this time. All instruments are removed from the vagina. All sponge counts are correct. The patient is then taken to recovery room in critical but stable condition. Patient has received RhoGAM. She will receive 1 unit of blood and 2 units of fresh frozen plasma due to probable DIC.
[2023-07-23 06:24] LABS: Glucose,Whole Blood 117 mg/dL (70-110)
[2023-07-23] MEDS: LACTATED RINGERS 1,000 ML IV SCH (06:25)
[2023-07-23] MEDS: METHYLERGONOVINE 0.2 MG/ML 1 ML AMP IM ONE (07:42)
[2023-07-23] MEDS ORDERED: ONDANSETRON 4 MG/2 ML VIAL IVP PRN (08:00)
[2023-07-23] MEDS ORDERED: SIMETHICONE 80 MG CHEWABLE PO PRN (09:00)
[2023-07-23] MEDS ORDERED: METOCLOPRAMIDE 5 MG/ML 2 ML VIAL IVP PRN (09:00)
[2023-07-23] MEDS ORDERED: KETOROLAC 15 MG/ML 1 ML VIAL IVP PRN (09:00)
[2023-07-23 09:23] LABS: Basophils % (A) 0 %; Eosinophils % (A) 0 %; Lymphocytes # (A) 0.5 k/uL (1.0-4.8); Lymphocytes % (A) 5 %; MCH 29.6 pg (25.0-35.0); MCHC 33.4 g/dL (31.0-37.0); MCV 88.6 fL (80.0-100.0); Mean Platelet Volume 9.6; Monocytes # (A) 0.1 k/uL (0-1.0); Monocytes % (A) 1 %; Neutrophils # (A) 8.1 k/uL (1.3-7.7); Neutrophils % (A) 94 %; RBC 2.12 m/uL (3.80-5.40); RDW 13.9 % (11.5-15.5); WBC 8.6 k/uL (3.8-10.6)
[2023-07-23 09:26] LABS: African American GFR (CKD) >90 (>60 ml/min/1.73 sqM); Anion Gap 7 mmol/L; Blood Urea Nitrogen 12 mg/dL (7-17); Calcium 7.2 mg/dL (8.4-10.2); Carbon Dioxide 17 mmol/L (22-30); Chloride 112 mmol/L (98-107); Glucose 124 mg/dL (74-99); Magnesium 1.3 mg/dL (1.6-2.3); Non-African American GFR(CKD) >90 (>60 ml/min/1.73 sqM); Potassium 3.9 mmol/L (3.5-5.1); Sodium 136 mmol/L (137-145)
[2023-07-23 09:28] LABS: HCT 18.8 % (34.0-46.0); HGB 6.3 gm/dL (11.4-16.0)
[2023-07-23] MEDS: SENNOSIDES-DOCUSATE SODIUM 1 EACH TAB PO SCH (09:28)
[2023-07-23 09:29] LABS: Platelet Count 69 k/uL (150-450)
[2023-07-23] MEDS ORDERED: diphenhydrAMINE 50 MG/ML 1 ML VIAL IVP PRN (12:00)
[2023-07-23] MEDS ORDERED: IBUPROFEN 600 MG TAB PO PRN (12:00)
--- NOTE | 2023-07-23 12:21 | P.CNPUL ---
History of Present Illness Consult date: 07/23/23 Requesting physician: Karmen Rao Reason for consult: other (ICU management, DIC, vaginal bleeding) Chief complaint: Vaginal bleeding History of present illness: This is a 19-year-old female, had termination of at [facility] in [place] this was on 07/22/2023. Patient was sent home, and she has been experiencing significant amount of vaginal bleeding she was also feeling dizzy lightheaded, and had a syncopal episode at home. Patient was also feeling nauseated and she was even noticing some bleeding from her gums. Patient had no previous history of any hematological abnormality, no previous history of bleeding. Previously the patient had previous surgical . But she had no complications related to her previous . This time the patient came in with vaginal bleeding and abnormal labs, highly consistent with anemia and DIC picture with elevated pro time, elevated PTT, low fibrinogen, and low platelets patient underwent suction dilatation and curettage by Dr. Rao on this admission, and she was admitted to the ICU because of her DIC picture continues to have some vaginal bleeding and spotting, did not seem to be severe, but her labs are quite concerning.So far the patient received 2 units of packed RBCs, 2 units of fresh frozen plasma, 1 unit of cryoprecipitate, patient is hemodynamically stable, does not seem to be in any form of distress, and upon my evaluation I recommended immediate hematologic consultation which was done already. In the meantime I felt strongly that the patient needs to be closely monitored in the ICU. And will address her DIC picture as per the recommendation of hematology on the case. Fibrinogen level this morning is less than 70. Review of Systems Constitutional: Reports fatigue, Reports lethargy Eyes: denies blurred vision, denies pain Ears, nose, mouth and throat: Reports bleeding gums Cardiovascular: Reports shortness of breath, Denies chest pain Respiratory: Denies cough Gastrointestinal: Reports abdominal pain (Lower abdominal cramping) Genitourinary: Reports abnormal vaginal bleeding, Reports pelvic pain Musculoskeletal: Denies myalgias Integumentary: Denies pruritus, Denies rash Neurological: Denies numbness, Denies weakness Past Medical History Past Medical History: No Reported History, Syncope Additional Past Medical History / Comment(s): . She has had 6 previous deliveries. History of Any Multi-Drug Resistant Organisms: None Reported Past Surgical History: No Surgical Hx Reported Additional Past Surgical History / Comment(s): History of 2 terminations of pr egnancies a last of which was yesterday. Past Anesthesia/Blood Transfusion Reactions: No Reported Reaction Past Psychological History: Anxiety, Depression Smoking Status: Vaper Past Alcohol Use History: None Reported Past Drug Use History: None Reported Additional Drug Use History / Comment(s): She does have a history of narcotic abuse. She states she has been sober for the last 6-7 months. - Past Family History Sister(s) Family Medical History: No Reported History, Seizure Disorder Father Family Medical History: No Reported History Additional Family Medical History / Comment(s): - OD Mother Family Medical History: No Reported History Medications and Allergies Home Medications Medication Instructions Recorded Confirmed Type No Known Home Medications 07/23/23 07/23/23 History Allergies Allergy/AdvReac Type Severity Reaction Status Date / Time No Known Allergies Allergy Verified 07/23/23 06:45 Physical Exam Vitals: Vital Signs Temp Pulse Pulse Resp BP BP Pulse Ox 07/23/23 11:00 92 18 90/47 96 07/23/23 10:45 90 9 L 94/54 96 07/23/23 10:38 98.8 F 93 18 94/85 96 07/23/23 10:30 86 8 L 92/54 96 07/23/23 10:15 85 4 L 95/55 97 07/23/23 10:00 89 15 95/55 95 07/23/23 09:45 98.8 F 84 14 94/56 97 07/23/23 09:30 87 13 98/54 97 07/23/23 09:15 87 16 97/63 96 07/23/23 09:00 87 11 L 92/55 97 07/23/23 08:51 98.7 F 88 11 L 98/54 97 07/23/23 08:50 98.8 F 87 18 95/52 97 07/23/23 08:45 87 5 L 95/52 97 07/23/23 08:31 98.8 F 87 18 92/55 96 07/23/23 08:30 85 17 96/57 96 07/23/23 08:15 85 16 97/55 97 07/23/23 08:00 98.8 F 91 16 98/57 96 07/23/23 07:45 94 19 97/51 97 07/23/23 07:30 90 15 97/54 96 07/23/23 07:15 89 16 97/58 97 07/23/23 07:00 92 14 96/52 97 07/23/23 06:45 94 18 84/57 97 07/23/23 06:30 90 15 99/57 97 07/23/23 06:18 97 07/23/23 06:00 87 16 106/52 99 07/23/23 05:45 84 16 105/52 100 07/23/23 05:30 84 16 100/55 100 07/23/23 05:21 100.6 F H 85 16 101/53 07/23/23 05:15 83 16 101/53 100 07/23/23 05:10 99.8 F H 83 16 102/51 07/23/23 05:00 93 16 102/51 100 07/23/23 04:46 99.8 F H 93 16 108/52 100 07/23/23 03:00 85 18 113/55 100 07/23/23 02:30 85 18 109/56 100 07/23/23 02:00 84 18 113/58 100 07/23/23 01:30 84 18 100/61 100 07/23/23 01:00 86 18 103/57 100 07/23/23 00:30 80 18 98/69 100 07/23/23 00:08 98.8 F 84 18 102/57 100 Intake and Output 07/22/23 07/23/23 07/23/23 22:59 06:59 14:59 Intake Total 1661 673 Output Total 20 460 Balance 1641 213 Intake: IV 950 300 Lactated Ringers 1,000 ml 300 @ 100 mls/hr IV .Q10H REPLACED BY [facility] Rx#:[id number] Blood Product 711 373 Ffp 24 Pher Acda Unit 200 [id number] Ffp 24 Pher Acda Cnt3 201 Unit [id number] Pooled Cryoprecipitate 97 Unit [id number] Rc As-1 Unit 310 [id number] Rc Pheresis As-3 Unit 276 [id number] Output: Urine 460 Estimated Blood Loss 20 Other: # Voids 0 Weight 63.503 kg 63.503 kg General: The patient is awake and alert, in no distress, and does not appear acutely ill. However the patient looks quite pale Skin: Extremely dry skin and dry mucous membranes Eye: Pupils are equal, round and reactive to light, extra-ocular movements are intact; pale conjunctivae noted no icterus. Ears, nose, mouth and throat: There are moist mucous membranes and no oral lesions. Neck: The neck is supple, there is no tenderness or JVD. Cardiovascular: There is a regular rate and rhythm. No murmur, rub or gallop is appreciated. Respiratory: Lear bilaterally no crackles rhonchi or wheezes Gastrointestinal: Soft, non-distended, non-tender abdomen without masses or organomegaly noted. There is no rebound or guarding present. Bowel sounds are unremarkable. Back: There is no tenderness to palpation in the midline. There is no obvious deformity. Musculoskeletal: Normal ROM, no tenderness, There is no pedal edema. There is no calf tenderness or swelling. No cords were appreciated. Neurological: CN II-XII intact, Cranial nerves III through XII are intact. There are no obvious motor or sensory deficits. Coordination appears grossly intact. Speech is normal. Psychiatric: Cooperative, appropriate mood & affect, normal judgment. Results - Laboratory Findings CBC and BMP: 07/23/23 07:43 07/23/23 07:43 PT/INR, D-dimer PT 21.6 sec (10.0-12.5) H 07/23/23 02:57 INR 2.2 (<1.2) H 07/23/23 02:57 Abnormal lab findings: Abnormal Labs 07/23/23 07/23/23 07/23/23 01:15 01:15 01:15 WBC 16.7 H RBC 2.76 L Hgb 8.3 L Hct 24.0 L Plt Count 90 L Neutrophils # 15.1 H Lymphocytes # 0.9 L PT 36.6 H INR 3.7 H APTT 35.3 H Fibrinogen Sodium 132 L Chloride 110 H Carbon Dioxide 17 L Glucose POC Glucose (mg/dL) Calcium 7.5 L Magnesium Total Protein 5.0 L Albumin 2.5 L Crossmatch 07/23/23 07/23/23 07/23/23 01:35 02:57 02:57 WBC RBC Hgb Hct Plt Count Neutrophils # Lymphocytes # PT 21.6 H INR 2.2 H APTT 31.9 H Fibrinogen <70 L* Sodium Chloride Carbon Dioxide Glucose POC Glucose (mg/dL) Calcium Magnesium Total Protein Albumin Crossmatch See Detail 07/23/23 07/23/23 07/23/23 06:22 07:43 07:43 WBC RBC 2.12 L Hgb 6.3 L* D Hct 18.8 L* Plt Count 69 L Neutrophils # 8.1 H Lymphocytes # 0.5 L PT INR APTT Fibrinogen Sodium 136 L Chloride 112 H Carbon Dioxide 17 L Glucose 124 H POC Glucose (mg/dL) 117 H Calcium 7.2 L Magnesium 1.3 L Total Protein Albumin Crossmatch - Diagnostic Findings Additional studies: Pelvic ultrasound results were reviewed patient had endometrial stripe thickened measuring 5.4 cm with heterogeneous material within it appearance is nonspecific. Assessment and Plan Assessment: Impression: Acute vaginal bleeding Acute DIC with thrombocytopenia, elevated pro time, elevated PTT, and low fibrinogen level. Most likely secondary to incomplete and retention of products of recent Acute blood loss anemia, secondary to above Recommendation: Continue to monitor the patient in the ICU Continue IV fluids Close hemodynamic monitoring Close monitoring of her DIC picture and address accordingly, patient received so far 2 units of packed RBCs, 2 units of fresh frozen plasma, and 1 unit of c ryoprecipitate. Hematology was consulted. GI prophylaxis. Continue cefazolin Patient received 1 dose of Methergine Prognosis is definitely guarded at this point. Will continue to follow closely. Time with Patient: Greater than 30
[2023-07-23 13:35] LABS: Prothrombin Time 11.3 sec (10.0-12.5)
[2023-07-23 14:07] LABS: Basophils % (A) 0 %; Eosinophils % (A) 0 %; HCT 21.4 % (34.0-46.0); HGB 7.4 gm/dL (11.4-16.0); Lymphocytes # (A) 0.4 k/uL (1.0-4.8); Lymphocytes % (A) 5 %; MCH 30.4 pg (25.0-35.0); MCHC 34.5 g/dL (31.0-37.0); MCV 88.1 fL (80.0-100.0); Mean Platelet Volume 9.6; Monocytes # (A) 0.1 k/uL (0-1.0); Monocytes % (A) 2 %; Neutrophils # (A) 7.6 k/uL (1.3-7.7); Neutrophils % (A) 93 %; RBC 2.43 m/uL (3.80-5.40); RDW 14.1 % (11.5-15.5); WBC 8.2 k/uL (3.8-10.6)
[2023-07-23 14:13] LABS: Platelet Count 83 k/uL (150-450)
--- NOTE | 2023-07-23 15:42 | P.CONS ---
History of Present Illness - Reason for Consult Consult date: 07/23/23 DIC Requesting physician: Sade Parker - Chief Complaint vaginal bleeding - History of Present Illness Ms. Loving is a 28-year-old female that we have been asked to see regarding treatment and mgmt of disseminated intravascular coagulation which is likely the result of retained products of conception after MTP at 13 weeks. She had termination at [facility] 07/22/2023. Once at home, vaginal bleeding was heavy, associated with dizziness and a syncopal episode. She reported gum bleeding and nausea. Pelvic ultrasound showed lining thickness of 5.3 cm with possible blood clot or retained products. She has had a D & C with Dr. Rao. Fibrinogen was less than 70, coags were elevated, platelets were as low as 69,000, hemoglobin as low as 6.3. When seen the patient reports mild nausea, no progressive gum bleeding or new bleeding, vaginal bleeding has significantly slowed, mild abdominal discomfort to palpation. No fevers or vomiting. Review of Systems 10 point ROS is neg except as stated in HPI Past Medical History Past Medical History: No Reported History Additional Past Medical History / Comment(s): . She has had 4 previous deliveries. History of Any Multi-Drug Resistant Organisms: None Reported Past Surgical History: No Surgical Hx Reported Additional Past Surgical History / Comment(s): History of 2 terminations of pregnancies a last of which was yesterday. Past Anesthesia/Blood Transfusion Reactions: No Reported Reaction Past Psychological History: Anxiety, Depression Smoking Status: Vaper Past Alcohol Use History: None Reported Past Drug Use History: None Reported - Past Family History Sister(s) Family Medical History: Seizure Disorder Father Family Medical History: No Reported History Mother Family Medical History: No Reported History Medications and Allergies Home Medications Medication Instructions Recorded Confirmed Type No Known Home Medications 07/23/23 07/23/23 History Allergies Allergy/AdvReac Type Severity Reaction Status Date / Time No Known Allergies Allergy Verified 07/23/23 06:45 Physical Exam Vitals: Vital Signs Temp Pulse Pulse Resp BP BP Pulse Ox 07/23/23 08:15 85 16 97/55 97 07/23/23 08:00 98.8 F 91 16 98/57 96 07/23/23 07:45 94 19 97/51 97 07/23/23 07:30 90 15 97/54 96 07/23/23 07:15 89 16 97/58 97 07/23/23 07:00 92 14 96/52 97 07/23/23 06:45 94 18 84/57 97 07/23/23 06:30 90 15 99/57 97 07/23/23 06:18 97 07/23/23 06:00 87 16 106/52 99 07/23/23 05:45 84 16 105/52 100 07/23/23 05:30 84 16 100/55 100 07/23/23 05:21 100.6 F H 85 16 101/53 07/23/23 05:15 83 16 101/53 100 07/23/23 05:10 99.8 F H 83 16 102/51 07/23/23 05:00 93 16 102/51 100 07/23/23 04:46 99.8 F H 93 16 108/52 100 07/23/23 03:00 85 18 113/55 100 07/23/23 02:30 85 18 109/56 100 07/23/23 02:00 84 18 113/58 100 07/23/23 01:30 84 18 100/61 100 07/23/23 01:00 86 18 103/57 100 07/23/23 00:30 80 18 98/69 100 07/23/23 00:08 98.8 F 84 18 102/57 100 Intake and Output 07/22/23 07/23/23 07/23/23 22:59 06:59 14:59 Intake Total 1661 200 Output Total 20 0 Balance 1641 200 Intake: IV 950 200 Lactated Ringers 1,000 ml 200 @ 100 mls/hr IV .Q10H [facility] Rx#:[id number] Blood Product 711 0 Unit 0 Ffp 24 Pher Acda Unit 200 [id number] Ffp 24 Pher Acda Cnt3 201 Unit [id number] Rc As-1 Unit 310 [id number] Rc Pheresis As-3 Unit 0 [id number] Output: Urine 0 Estimated Blood Loss 20 Other: # Voids 0 Weight 63.503 kg - Constitutional General appearance: average body habitus, cooperative, no acute distress - EENT Eyes: anicteric sclerae, EOMI ENT: hearing grossly normal - Neck Neck: no lymphadenopathy - Respiratory Respiratory: bilateral: CTA - Cardiovascular Rhythm: regular Heart sounds: normal: S1, S2 Abnormal Heart Sounds: no systolic murmur, no diastolic murmur, no rub, no S3 Gallop, no S4 Gallop, no click, no other leg Peripheral Edema: bilateral: None - Gastrointestinal General gastrointestinal: no absent bowel sounds, no decreased bowel sounds, no distended, no hepatomegaly, no hyperactive bowel sounds, normal bowel sounds, no organomegaly, no rigid, no scaphoid, soft, no splenomegaly, tenderness, no umbilical hernia, no ventral hernia - Integumentary Integumentary: flushed - Neurologic Neurologic: CNII-XII intact - Musculoskeletal Musculoskeletal: strength equal bilaterally - Psychiatric Psychiatric: A&O x's 3, appropriate affect, intact judgment & insight Results CBC & Chem 7: 07/23/23 12:47 07/23/23 07:43 Labs: Abnormal Lab Results - Last 24 Hours (Table) 07/23/23 07/23/23 07/23/23 Range/Units 01:15 01:15 01:15 WBC 16.7 H (3.8-10.6) k/uL RBC 2.76 L (3.80-5.40) m/uL Hgb 8.3 L (11.4-16.0) gm/dL Hct 24.0 L (34.0-46.0) % Plt Count 90 L (150-450) k/uL Neutrophils # 15.1 H (1.3-7.7) k/uL Lymphocytes # 0.9 L (1.0-4.8) k/uL PT 36.6 H (10.0-12.5) sec INR 3.7 H (<1.2) APTT 35.3 H (22.0-30.0) sec Fibrinogen (200-500) mg/dL Sodium 132 L (137-145) mmol/L Chloride 110 H (98-107) mmol/L Carbon Dioxide 17 L (22-30) mmol/L POC Glucose (mg/dL) (70-110) mg/dL Calcium 7.5 L (8.4-10.2) mg/dL Total Protein 5.0 L (6.3-8.2) g/dL Albumin 2.5 L (3.5-5.0) g/dL Crossmatch 07/23/23 07/23/23 07/23/23 Range/Units 01:35 02:57 02:57 WBC (3.8-10.6) k/uL RBC (3.80-5.40) m/uL Hgb (11.4-16.0) gm/dL Hct (34.0-46.0) % Plt Count (150-450) k/uL Neutrophils # (1.3-7.7) k/uL Lymphocytes # (1.0-4.8) k/uL PT 21.6 H (10.0-12.5) sec INR 2.2 H (<1.2) APTT 31.9 H (22.0-30.0) sec Fibrinogen <70 L* (200-500) mg/dL Sodium (137-145) mmol/L Chloride (98-107) mmol/L Carbon Dioxide (22-30) mmol/L POC Glucose (mg/dL) (70-110) mg/dL Calcium (8.4-10.2) mg/dL Total Protein (6.3-8.2) g/dL Albumin (3.5-5.0) g/dL Crossmatch See Detail 07/23/23 Range/Units 06:22 WBC (3.8-10.6) k/uL RBC (3.80-5.40) m/uL Hgb (11.4-16.0) gm/dL Hct (34.0-46.0) % Plt Count (150-450) k/uL Neutrophils # (1.3-7.7) k/uL Lymphocytes # (1.0-4.8) k/uL PT (10.0-12.5) sec INR (<1.2) APTT (22.0-30.0) sec Fibrinogen (200-500) mg/dL Sodium (137-145) mmol/L Chloride (98-107) mmol/L Carbon Dioxide (22-30) mmol/L POC Glucose (mg/dL) 117 H (70-110) mg/dL Calcium (8.4-10.2) mg/dL Total Protein (6.3-8.2) g/dL Albumin (3.5-5.0) g/dL Crossmatch Assessment and Plan (1) DIC (disseminated intravascular coagulation) Current Visit: Yes Status: Acute Priority: High Code(s): D65 - DISSEMINATED INTRAVASCULAR COAGULATION SNOMED Code(s): 37605449 (2) Acute blood loss anemia Current Visit: Yes Status: Acute Priority: High Code(s): D62 - ACUTE POSTHEMORRHAGIC ANEMIA SNOMED Code(s): 160121553 Plan: DIC secondary to MTP and retained products of conception -Status post D&C with improvement in vaginal bleeding -Fibrinogen less than 70 on admit. She is status post 1 unit of cryoprecipitate, fibrinogen 226 on recheck -Elevated PT/PTT, INR 3.7. Patient is status post 2 units of FFP, INR now 1, normal PT/PTT. -Hemoglobin as low as 6.3, active bleeding. S/P 2 units of packed red blood cells, there has been a decrease in active blood loss, recent Hgb 7.4. -Platelets as low as 69,000. No transfusions needed. Post D&C, cryoprecipitate and FFP, consumption of platelets is now slowed/stopped. Plt now 83,000 -CBC, PT/INR, PTT and fibrinogen ordered for 9 PM. Hematology to be contacted with any abnormal findings. Doctor attests: I performed a history and physical examination of this patient, developed impression and plan of care. Discussed with dictator. I agree with dictators note, documented as a scribe. Time with Patient: Greater than 30
[2023-07-23 21:04] LABS: MCH 30.6 pg (25.0-35.0); MCHC 34.9 g/dL (31.0-37.0); MCV 87.6 fL (80.0-100.0); Mean Platelet Volume 9.8; RBC 2.02 m/uL (3.80-5.40); RDW 14.5 % (11.5-15.5); WBC 7.2 k/uL (3.8-10.6)
[2023-07-23 21:30] LABS: HCT 17.7 % (34.0-46.0)
[2023-07-23 21:36] LABS: HGB 6.2 gm/dL (11.4-16.0)
[2023-07-23 21:37] LABS: INR 1.1 (<1.2); Partial Thromboplastin Time 23.3 sec (22.0-30.0); Prothrombin Time 11.4 sec (10.0-12.5)
[2023-07-23 22:06] LABS: Platelet Count 66 k/uL (150-450)
[2023-07-24 04:17] LABS: Basophils % (A) 0 %; Eosinophils % (A) 1 %; Lymphocytes # (A) 2.2 k/uL (1.0-4.8); Lymphocytes % (A) 32 %; MCH 30.1 pg (25.0-35.0); MCHC 34.1 g/dL (31.0-37.0); MCV 88.4 fL (80.0-100.0); Monocytes # (A) 0.4 k/uL (0-1.0); Monocytes % (A) 5 %; Neutrophils # (A) 4.1 k/uL (1.3-7.7); Neutrophils % (A) 60 %; RDW 14.6 % (11.5-15.5); WBC 6.8 k/uL (3.8-10.6)
[2023-07-24 04:26] LABS: African American GFR (CKD) >90 (>60 ml/min/1.73 sqM); Anion Gap 1 mmol/L; Blood Urea Nitrogen 7 mg/dL (7-17); Calcium 7.6 mg/dL (8.4-10.2); Carbon Dioxide 21 mmol/L (22-30); Chloride 115 mmol/L (98-107); Glucose 97 mg/dL (74-99); Non-African American GFR(CKD) >90 (>60 ml/min/1.73 sqM); Potassium 3.5 mmol/L (3.5-5.1); Sodium 137 mmol/L (137-145)
[2023-07-24 04:58] LABS: HCT 17.7 % (34.0-46.0); Platelet Count 70 k/uL (150-450)
--- NOTE | 2023-07-24 08:38 | P.PN ---
Subjective Progress Note Date: 07/24/23 Principal diagnosis: hemorrhage due to surgical Acute blood loss anemia DIC Patient feels much better today. Her bleeding has slowed significantly. She is only had one small amount of blood on 1 pad through the night. She has not been up and ambulating yet. Pain is well-controlled. She does inform me that she did start care with a Dr. Resendiz and he was aware that she was planning a termination. She would like to have a tubal ligation and she has expressed this interest to him. Objective - Vital Signs Vital signs: Vital Signs Temp 98.2 F 07/24/23 08:05 Pulse 96 07/24/23 08:05 Resp 16 07/24/23 08:05 BP 101/59 07/24/23 08:05 Pulse Ox 96 07/24/23 08:05 FiO2 Intake & Output 07/23/23 07/24/23 07/24/23 18:59 06:59 18:59 Intake Total 1733 690 20 Output Total 980 520 170 Balance 753 170 -150 Weight 63.503 kg 70.5 kg Intake: IV 1000 390 20 Lactated Ringers 1,000 ml 1000 390 20 @ 100 mls/hr IV .Q10H [facility]PLAC[facility] Rx#:[id number] Oral 360 300 Blood Product 373 0 Pooled Cryoprecipitate 97 Unit [id number] Rc As-1 Unit 0 [id number] Rc Pheresis As-3 Unit 276 [id number] Output: Urine 980 520 170 Other: # Voids 0 - Constitutional General appearance: Present: no acute distress - Genitourinary Genitourinary Comment(s): Shaila-pad shows no bleeding and uterine fundus is firm and nontender. - Labs CBC & Chem 7: 07/24/23 03:47 07/24/23 03:47 Labs: Abnormal Lab Results - Last 24 Hours (Table) 07/23/23 07/23/23 07/23/23 Range/Units 01:35 07:43 07:43 RBC 2.12 L (3.80-5.40) m/uL Hgb 6.3 L* D (11.4-16.0) gm/dL Hct 18.8 L* (34.0-46.0) % Plt Count 69 L (150-450) k/uL Neutrophils # 8.1 H (1.3-7.7) k/uL Lymphocytes # 0.5 L (1.0-4.8) k/uL Sodium 136 L (137-145) mmol/L Chloride 112 H (98-107) mmol/L Carbon Dioxide 17 L (22-30) mmol/L Glucose 124 H (74-99) mg/dL Calcium 7.2 L (8.4-10.2) mg/dL Magnesium 1.3 L (1.6-2.3) mg/dL Crossmatch See Detail 07/23/23 07/23/23 07/24/23 Range/Units 12:47 20:37 03:47 RBC 2.43 L 2.02 L 2.00 L (3.80-5.40) m/uL Hgb 7.4 L 6.2 L* 6.0 L* (11.4-16.0) gm/dL Hct 21.4 L 17.7 L* 17.7 L* (34.0-46.0) % Plt Count 83 L 66 L 70 L (150-450) k/uL Neutrophils # (1.3-7.7) k/uL Lymphocytes # 0.4 L (1.0-4.8) k/uL Sodium (137-145) mmol/L Chloride (98-107) mmol/L Carbon Dioxide (22-30) mmol/L Glucose (74-99) mg/dL Calcium (8.4-10.2) mg/dL Magnesium (1.6-2.3) mg/dL Crossmatch 07/24/23 Range/Units 03:47 RBC (3.80-5.40) m/uL Hgb (11.4-16.0) gm/dL Hct (34.0-46.0) % Plt Count (150-450) k/uL Neutrophils # (1.3-7.7) k/uL Lymphocytes # (1.0-4.8) k/uL Sodium (137-145) mmol/L Chloride 115 H (98-107) mmol/L Carbon Dioxide 21 L (22-30) mmol/L Glucose (74-99) mg/dL Calcium 7.6 L (8.4-10.2) mg/dL Magnesium (1.6-2.3) mg/dL Crossmatch Assessment and Plan Assessment: Status post suction dilation and curettage for retained products of conception Status post surgical on 07/22/2023 Acute blood loss anemia DIC (1) Acute blood loss anemia Current Visit: Yes Status: Acute Priority: High Code(s): D62 - ACUTE P OSTHEMORRHAGIC ANEMIA SNOMED Code(s): 780590465 (2) Thrombocytopenia Current Visit: Yes Status: Acute Code(s): D69.6 - THROMBOCYTOPENIA, UNSPECIFIED SNOMED Code(s): 617266289 (3) complicated by delayed or excessive hemorrhage Current Visit: Yes Status: Acute Code(s): O03.6 - DELAYED OR EXCESS HEMOR FOL COMPLETE OR UNSP SPON SNOMED Code(s): 938594233 (4) Vaginal bleeding Current Visit: Yes Status: Acute Code(s): N93.9 - ABNORMAL UTERINE AND VAGINAL BLEEDING, UNSPECIFIED SNOMED Code(s): 341066640 Plan: Patient's bleeding has slowed significantly. Will defer to hematology regarding transfusions and follow-up for her DIC. She is instructed to follow-up with Dr. Resendiz after she is discharged to plan tubal ligation at a later date. I will not be able to do this as our office is closing in about a month. She is okay for discharge from a gynecologic standpoint whenever medicine hematology feel she is ready.
--- NOTE | 2023-07-24 11:52 | P.PN ---
Subjective Progress Note Date: 07/24/23 Principal diagnosis: Vaginal bleeding and DIC This is a 19-year-old female, had termination of at [facility] in [place] this was on 07/22/2023. Patient was sent home, and she has been experiencing significant amount of vaginal bleeding she was also feeling dizzy lightheaded, and had a syncopal episode at home. Patient was also feeling nauseated and she was even noticing some bleeding from her gums. Patient had no previous history of any hematological abnormality, no previous history of bleeding. Previously the patient had previous surgical . But she had no complications related to her previous . This time the patient came in with vaginal bleeding and abnormal labs, highly consistent with anemia and DIC picture with elevated pro time, elevated PTT, low fibrinogen, and low platelets patient underwent suction dilatation and curettage by Dr. Rao on this admission, and she was admitted to the ICU because of her DIC picture continues to have some vaginal bleeding and spotting, did not seem to be severe, but her labs are quite concerning.So far the patient received 2 units of packed RBCs, 2 units of fresh frozen plasma, 1 unit of cryoprecipitate, patient is hemodynamically stable, does not seem to be in any form of distress, and upon my evaluation I recommended immediate hematologic consultation which was done already. In the meantime I felt strongly that the patient needs to be closely monitored in the ICU. And will address her DIC picture as per the recommendation of hematology on the case. Fibrinogen level this morning is less than 70. Reevaluated today on 07/24/2023, patient remains in the ICU, her bleeding has slowed significantly. Her hemoglobin remained low this morning and she will be receiving another unit of packed RBCs. Her hematologic profile today including platelets, pro time, PTT, fibrinogen, are all definitely improved which implies that the patient is recovering from DIC. Patient is hemodynamically stable, no other sites of bleeding noted today. Hemoglobin today is 6.0 WBC count is 6.8, electrolytes are normal BUN is normal creatinine is normal. Platelets are 70,000. Objective - Vital Signs Vital signs: Vital Signs Temp 98.2 F 07/24/23 11:17 Pulse 81 07/24/23 11:17 Resp 18 07/24/23 11:17 BP 106/66 07/24/23 11:17 Pulse Ox 96 02/16/24 11:17 FiO2 Intake & Output 07/23/23 07/24/23 07/24/23 18:59 06:59 18:59 Intake Total 1733 690 340 Output Total 980 520 420 Balance 753 170 -80 Weight 63.503 kg 70.5 kg Intake: IV 1000 390 30 Lactated Ringers 1,000 ml 1000 390 30 @ 100 mls/hr IV .Q10H [facility] Rx#:[id number] Oral 360 300 Blood Product 373 310 Pooled Cryoprecipitate 97 Unit [id number] Rc As-1 Unit 310 [id number] Rc Pheresis As-3 Unit 276 [id number] Output: Urine 980 520 420 Other: # Voids 0 - Exam General: The patient is awake and alert, in no distress, and does not appear acutely ill. Still looks pale Skin: Extremely dry skin and dry mucous membranes Eye: Pupils are equal, round and reactive to light, extra-ocular movements are intact; pale conjunctivae noted no icterus. Ears, nose, mouth and throat: There are moist mucous membranes and no oral lesions. Neck: The neck is supple, there is no tenderness or JVD. Cardiovascular: There is a regular rate and rhythm. No murmur, rub or gallop is appreciated. Respiratory: Clear throughout. Gastrointestinal: Soft, non-distended, non-tender abdomen without masses or organomegaly noted. There is no rebound or guarding present. Bowel sounds are unremarkable. Back: There is no tenderness to palpation in the midline. There is no obvious deformity. Musculoskeletal: Normal ROM, no tenderness, There is no pedal edema. There is no calf tenderness or swelling. No cords were appreciated. Neurological: CN II-XII intact, Cranial nerves III through XII are intact. There are no obvious motor or sensory deficits. Coordination appears grossly intact. Speech is normal. Psychiatric: Cooperative, appropriate mood & affect, normal judgment. - Labs CBC & Chem 7: 07/24/23 03:47 07/24/23 03:47 Labs: Abnormal Lab Results - Last 24 Hours (Table) 07/23/23 07/23/23 07/23/23 Range/Units 01:35 12:47 20:37 RBC 2.43 L 2.02 L (3.80-5.40) m/uL Hgb 7.4 L 6.2 L* (11.4-16.0) gm/dL Hct 21.4 L 17.7 L* (34.0-46.0) % Plt Count 83 L 66 L (150-450) k/uL Lymphocytes # 0.4 L (1.0-4.8) k/uL Chloride (98-107) mmol/L Carbon Dioxide (22-30) mmol/L Calcium (8.4-10.2) mg/dL Crossmatch See Detail 07/24/23 07/24/23 Range/Units 03:47 03:47 RBC 2.00 L (3.80-5.40) m/uL Hgb 6.0 L* (11.4-16.0) gm/dL Hct 17.7 L* (34.0-46.0) % Plt Count 70 L (150-450) k/uL Lymphocytes # (1.0-4.8) k/uL Chloride 115 H (98-107) mmol/L Carbon Dioxide 21 L (22-30) mmol/L Calcium 7.6 L (8.4-10.2) mg/dL Crossmatch Assessment and Plan Assessment: Impression: Acute vaginal bleeding Acute DIC with thrombocytopenia, elevated pro time, elevated PTT, and low fibrinogen level. Most likely secondary to incomplete and retention of products of recent , improving today. Acute blood loss anemia, secondary to above patient received so far 3 units of packed RBCs Recommendation: Continue to monitor the patient in the ICU Continue to monitor hemoglobin hematocrit and platelets as well as pro time and PTT GI prophylaxis. Continue cefazolin Will continue to follow closely. Time with Patient: Less than 30
[2023-07-24 13:43] LABS: Prothrombin Time 10.7 sec (10.0-12.5)
[2023-07-24 13:46] LABS: Basophils # (A) 0.1 k/uL (0-0.2); Basophils % (A) 1 %; Eosinophils # (A) 0.1 k/uL (0-0.7); Eosinophils % (A) 1 %; HCT 22.7 % (34.0-46.0); Lymphocytes # (A) 2.2 k/uL (1.0-4.8); Lymphocytes % (A) 32 %; MCH 30.3 pg (25.0-35.0); MCHC 34.3 g/dL (31.0-37.0); MCV 88.6 fL (80.0-100.0); Mean Platelet Volume 9.8; Monocytes # (A) 0.3 k/uL (0-1.0); Monocytes % (A) 4 %; Neutrophils # (A) 4.1 k/uL (1.3-7.7); Neutrophils % (A) 61 %; RBC 2.56 m/uL (3.80-5.40); RDW 14.4 % (11.5-15.5); WBC 6.8 k/uL (3.8-10.6)
[2023-07-24 13:49] LABS: HGB 7.8 gm/dL (11.4-16.0); Platelet Count 76 k/uL (150-450)
[2023-07-24 13:52] LABS: Partial Thromboplastin Time 21.5 sec (22.0-30.0)
[2023-07-24] MEDS: ACETAMINOPHEN TAB 325 MG TAB PO PRN (17:15)
--- NOTE | 2023-07-24 18:29 | P.PN ---
Subjective Progress Note Date: 07/24/23 No acute events. Vaginal bleeding improved. Torrez catheter discontinued today, no hematuria noted. Patient reports feeling improved. Denies abdominal pain, fever and chills. Hemoglobin noted at 6.0 today. 1 additional unit of PRBCs ordered. Platelets 70,000. Objective - Vital Signs Vital signs: Vital Signs Temp 98.2 F 07/24/23 12:00 Pulse 83 07/24/23 15:00 Resp 16 07/24/23 15:00 BP 103/71 07/24/23 15:00 Pulse Ox 98 07/24/23 15:00 FiO2 Intake & Output 07/23/23 07/24/23 07/24/23 18:59 06:59 18:59 Intake Total 1733 690 340 Output Total 980 520 420 Balance 753 170 -80 Weight 63.503 kg 70.5 kg Intake: IV 1000 390 30 Lactated Ringers 1,000 ml 1000 390 30 @ 100 mls/hr IV .Q10H [facility] Rx#:[id number] Oral 360 300 Blood Product 373 310 Pooled Cryoprecipitate 97 Unit [id number] Rc As-1 Unit 310 [id number] Rc Pheresis As-3 Unit 276 [id number] Output: Urine 980 520 420 Other: # Voids 0 1 - Constitutional General appearance: Present: average body habitus, no acute distress - EENT Eyes: Present: anicteric sclerae, EOMI ENT: Present: hearing grossly normal - Respiratory Details: breathing is even and unlabored - Cardiovascular Details: well perfused - Gastrointestinal General gastrointestinal: Present: soft. Absent: tenderness - Integumentary Integumentary: Present: pale. Absent: cyanotic - Neurologic Neurologic: Present: CNII-XII intact - Musculoskeletal Musculoskeletal: Present: strength equal bilaterally - Psychiatric Psychiatric: Present: A&O x's 3 - Labs CBC & Chem 7: 07/24/23 13:12 07/24/23 03:47 Labs: Abnormal Lab Results - Last 24 Hours (Table) 07/23/23 07/23/23 07/24/23 Range/Units 01:35 20:37 03:47 RBC 2.02 L 2.00 L (3.80-5.40) m/uL Hgb 6.2 L* 6.0 L* (11.4-16.0) gm/dL Hct 17.7 L* 17.7 L* (34.0-46.0) % Plt Count 66 L 70 L (150-450) k/uL APTT (22.0-30.0) sec Chloride (98-107) mmol/L Carbon Dioxide (22-30) mmol/L Calcium (8.4-10.2) mg/dL Crossmatch See Detail 07/24/23 07/24/23 07/24/23 Range/Units 03:47 13:12 13:12 RBC 2.56 L (3.80-5.40) m/uL Hgb 7.8 L D (11.4-16.0) gm/dL Hct 22.7 L (34.0-46.0) % Plt Count 76 L (150-450) k/uL APTT 21.5 L (22.0-30.0) sec Chloride 115 H (98-107) mmol/L Carbon Dioxide 21 L (22-30) mmol/L Calcium 7.6 L (8.4-10.2) mg/dL Crossmatch Assessment and Plan (1) complicated by delayed or excessive hemorrhage Current Visit: Yes Status: Acute Priority: High Code(s): O03.6 - DELAYED OR EXCESS HEMOR FOL COMPLETE OR UNSP SPON SNOMED Code(s): 477066608 (2) Acute blood loss anemia Current Visit: Yes Status: Acute Priority: High Code(s): D62 - ACUTE POSTHEMORRHAGIC ANEMIA SNOMED Code(s): 238900182 (3) DIC (disseminated intravascular coagulation) Current Visit: Yes Status: Acute Priority: High Code(s): D65 - DISSEMINATED INTRAVASCULAR COAGULATION SNOMED Code(s): 73666733 (4) Thrombocytopenia Current Visit: Yes Status: Acute Priority: High Code(s): D69.6 - THROMBOCYTOPENIA, UNSPECIFIED SNOMED Code(s): 286379980 (5) Vaginal bleeding Current Visit: Yes Status: Acute Priority: High Code(s): N93.9 - ABNORMAL UTERINE AND VAGINAL BLEEDING, UNSPECIFIED SNOMED Code(s): 493289991 Plan: DIC secondary to MTP and retained products of conception -Status post D&C with improvement in vaginal bleeding -Fibrinogen less than 70 on admit. Elevated PT/PTT, INR 3.7. She is status post 1 unit of cryoprecipitate, fibrinogen 226 on recheck -Patient is status post 2 units of FFP, and 2 units PRBCs. Hemoglobin today 6.0, additional unit PRBCs ordered -Platelets 70,000 today. No transfusions needed. Post D&C, cryoprecipitate and FFP, consumption of platelets has now slowed. -Repeat DIC labs negative, will recheck in AM -CBC daily. Please transfuse for hemoglobin less than 7 or if symptomatic -Would recommend patient to start daily PO iron supplement outpt if tolerated without significant GI effects. Doctor attests: I performed a history and physical examination of this patient, developed impression and plan of care. Discussed with dictator. I agree with dictators note, documented as a scribe.
[2023-07-25 05:04] LABS: INR 0.9 (<1.2); Prothrombin Time 10.4 sec (10.0-12.5)
[2023-07-25 05:11] LABS: Basophils % (A) 1 %; Eosinophils # (A) 0.1 k/uL (0-0.7); Eosinophils % (A) 2 %; HCT 22.5 % (34.0-46.0); HGB 7.9 gm/dL (11.4-16.0); Lymphocytes # (A) 2.9 k/uL (1.0-4.8); Lymphocytes % (A) 45 %; MCH 30.6 pg (25.0-35.0); MCV 87.2 fL (80.0-100.0); Mean Platelet Volume 9.3; Monocytes # (A) 0.4 k/uL (0-1.0); Monocytes % (A) 5 %; Neutrophils # (A) 2.9 k/uL (1.3-7.7); Neutrophils % (A) 45 %; RBC 2.58 m/uL (3.80-5.40); RDW 14.7 % (11.5-15.5); WBC 6.5 k/uL (3.8-10.6)
[2023-07-25 05:16] LABS: Platelet Count 91 k/uL (150-450)
[2023-07-25 05:30] LABS: African American GFR (CKD) >90 (>60 ml/min/1.73 sqM); Anion Gap 1 mmol/L; Blood Urea Nitrogen 10 mg/dL (7-17); Calcium 7.6 mg/dL (8.4-10.2); Carbon Dioxide 24 mmol/L (22-30); Chloride 112 mmol/L (98-107); Glucose 82 mg/dL (74-99); Non-African American GFR(CKD) >90 (>60 ml/min/1.73 sqM); Potassium 3.6 mmol/L (3.5-5.1); Sodium 137 mmol/L (137-145)
[2023-07-25 08:32] VITALS: TEMP 98.2
[2023-07-25 09:03] VITALS: PULSE 84; RESP 16
--- NOTE | 2023-07-25 09:57 | P.PN ---
Subjective Progress Note Date: 07/25/23 Principal diagnosis: hemorrhage due to surgical Acute blood loss anemia DIC Patient is feeling fine. She has been ambulating without dizziness or shortness of breath. She has very scant bleeding. She is getting anxious to go home. Objective - Vital Signs Vital signs: Vital Signs Temp 98.2 F 07/25/23 08:00 Pulse 84 07/25/23 09:00 Resp 16 07/25/23 09:00 BP 100/72 07/25/23 09:00 Pulse Ox 95 07/25/23 09:00 FiO2 Intake & Output 07/24/23 07/25/23 07/25/23 18:59 06:59 18:59 Intake Total 340 625 0 Output Total 420 0 Balance -80 625 0 Weight 66.5 kg Intake: IV 30 0 Lactated Ringers 1,000 ml 30 0 @ 100 mls/hr IV .Q10H [facility] Rx#:[id number] Oral 625 Blood Product 310 Rc As-1 Unit 310 [id number] Output: Urine 420 0 Other: # Voids 0 1 - Constitutional General appearance: Present: no acute distress - Gastrointestinal General gastrointestinal: Present: soft. Absent: tenderness - Genitourinary Genitourinary Comment(s): Scant blood on narayan-pad - Labs CBC & Chem 7: 07/25/23 04:14 07/25/23 04:14 Labs: Abnormal Lab Results - Last 24 Hours (Table) 07/23/23 07/24/23 07/24/23 Range/Units 01:35 13:12 13:12 RBC 2.56 L (3.80-5.40) m/uL Hgb 7.8 L D (11.4-16.0) gm/dL Hct 22.7 L (34.0-46.0) % Plt Count 76 L (150-450) k/uL APTT 21.5 L (22.0-30.0) sec Chloride (98-107) mmol/L Calcium (8.4-10.2) mg/dL Crossmatch See Detail 07/25/23 07/25/23 Range/Units 04:14 04:14 RBC 2.58 L (3.80-5.40) m/uL Hgb 7.9 L (11.4-16.0) gm/dL Hct 22.5 L (34.0-46.0) % Plt Count 91 L (150-450) k/uL APTT (22.0-30.0) sec Chloride 112 H (98-107) mmol/L Calcium 7.6 L (8.4-10.2) mg/dL Crossmatch Assessment and Plan Assessment: Status post suction dilation and curettage for retained products of conception Status post surgical on 07/22/2023 Acute blood loss anemia DIC (1) Acute blood loss anemia Current Visit: Yes Status: Acute Priority: High Code(s): D62 - ACUTE POSTHEMORRHAGIC ANEMIA SNOMED Code(s): 102095963 (2) Thrombocytopenia Current Visit: Yes Status: Acute Priority: High Code(s): D69.6 - THROMBOCYTOPENIA, UNSPECIFIED SNOMED Code(s): 874464651 (3) complicated by delayed or excessive hemorrhage Current Visit: Yes Status: Acute Priority: High Code(s): O03.6 - DELAYED OR EXCESS HEMOR FOL COMPLETE OR UNSP SPON SNOMED Code(s): 557813562 (4) Vaginal bleeding Current Visit: Yes Status: Acute Priority: High Code(s): N93.9 - ABNORMAL UTERINE AND VAGINAL BLEEDING, UNSPECIFIED SNOMED Code(s): 935794319 Plan: Patient's coagulation profile has improved. Platelets are still low. Hemoglobin is up to 7.9 today. Patient feels well. I am okay with discharge whenever she is cleared by hematology and medicine. I have advised her that she is welcome to follow up with me for a postoperative visit in approximately 1-2 weeks after discharge but she should also follow-up with Dr. 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
[2023-07-25 10:32] VITALS: BP 105/64
--- NOTE | 2023-07-25 11:27 | P.DS ---
Providers Date of admission: 07/23/23 03:14 Expected date of discharge: 07/25/23 Attending physician: Karmen Rao Consults: 07/23/23 05:19 Consult Physician Urgent Consulting Provider: Sade Parker Consult Reason/Comments: ICU Management Do you want consulting provider notified?: Yes, Notify in am 07/23/23 07:32 Consult Physician Stat Consulting Provider: Jonatan Kilgore Consult Reason/Comments: DIC Do you want consulting provider notified?: Yes Primary care physician: Stated None - Discharge Diagnosis(es) (1) Acute blood loss anemia Current Visit: Yes Status: Acute Priority: High (2) Thrombocytopenia Current Visit: Yes Status: Acute Priority: High (3) complicated by delayed or excessive hemorrhage Current Visit: Yes Status: Acute Priority: High (4) Vaginal bleeding Current Visit: Yes Status: Acute Priority: High (5) DIC (disseminated intravascular coagulation) Current Visit: Yes Status: Acute Priority: High Hospital Course: This is a 28-year-old female 8 para 6 who underwent a surgical on July 22, 2023. She continued to bleed fairly heavy after the surgery and did have a syncopal episode at home. She therefore came to the emergency room and continued to bleed heavy. I was consulted and performed an emergency dilation and curettage where I found a large amount of retained products of conception. She was originally noted to have a hemoglobin of 8.2 with platelet count of 90,000. She also complained of bleeding from her gums that had just started that day. She was admitted to ICU after surgery for close observation and was found to be in DIC. Dr. Parker was consulted for ICU management and Dr. Kilgore was consulted for management of DIC. She received a total of 3 units of packed red blood cells, 2 units of fresh frozen plasma, and 1 unit of cryoprecipitate. Her hemoglobin reached a low of 6 and her platelet count reached a low of 66,000. Also her PT, PTT, and INR were all elevated on admission. She also had a fibrinogen of less than 70. Currently her hemoglobin is 7.9 and her platelet count is up to 91,000 with normal PT and PTT. Her bleeding has been minimal and she denies any pain or cramping. She is tolerating regular diet and has been able to ambulate without difficulty or shortness of breath. She has been cleared by medicine and hematology for discharge. She will need to follow-up closely for repeat CBC. Patient does have an EDUCATION PROGRAM ASSOCIATE, Dr. Resendiz who she has seen earlier in the . She does have plans to follow-up with him to schedule a tubal ligation as an outpatient. I have advised her to follow-up with me early next week for repeat CBC in my office. She is advised to return to the hospital if she has any significant shortness of breath, syncopal episodes, or heavy bleeding. Procedures: Suction dilation and curettage on 07/23/2023 Patient Condition at Discharge: Stable Plan - Discharge Summary Discharge Rx Participant: Yes New Discharge Prescriptions: New Ferrous Sulfate [Iron (65 MG Elemental)] 325 mg PO DAILY #30 tab Discharge Medication List Ferrous Sulfate [Iron (65 MG Elemental)] 325 mg PO DAILY #30 tab 07/25/23 [Rx] Follow up Appointment(s)/Referral(s): None,Stated [Primary Care Provider] - 1-2 days Karmen Rao DO [Doctor of Osteopathic Medicine] - 07/28/23 (Please call the office on Thursday to schedule an appointment on Friday, July 28, 2023.) Miguel Resendiz DO [REFERRING] - 1 Week Activity/Diet/Wound Care/Special Instructions: Activity as tolerated. Diet as tolerated. May take Tylenol or Motrin as needed for pain or cramping. No intercourse. Return to the hospital if heavy bleeding, shortness of breath, syncopal episodes, or any signs of infection such as high fever or chills. Discharge Disposition: HOME SELF-CARE
--- NOTE | 2023-07-25 12:32 | P.PN ---
Subjective Progress Note Date: 07/25/23 Principal diagnosis: Vaginal bleeding and DIC This is a 19-year-old female, had termination of at [facility] in [place] this was on 07/22/2023. Patient was sent home, and she has been experiencing significant amount of vaginal bleeding she was also feeling dizzy lightheaded, and had a syncopal episode at home. Patient was also feeling nauseated and she was even noticing some bleeding from her gums. Patient had no previous history of any hematological abnormality, no previous history of bleeding. Previously the patient had previous surgical . But she had no complications related to her previous . This time the patient came in with vaginal bleeding and abnormal labs, highly consistent with anemia and DIC picture with elevated pro time, elevated PTT, low fibrinogen, and low platelets patient underwent suction dilatation and curettage by Dr. Rao on this admission, and she was admitted to the ICU because of her DIC picture continues to have some vaginal bleeding and spotting, did not seem to be severe, but her labs are quite concerning.So far the patient received 2 units of packed RBCs, 2 units of fresh frozen plasma, 1 unit of cryoprecipitate, patient is hemodynamically stable, does not seem to be in any form of distress, and upon my evaluation I recommended immediate hematologic consultation which was done already. In the meantime I felt strongly that the patient needs to be closely monitored in the ICU. And will address her DIC picture as per the recommendation of hematology on the case. Fibrinogen level this morning is less than 70. Reevaluated today on 07/24/2023, patient remains in the ICU, her bleeding has slowed significantly. Her hemoglobin remained low this morning and she will be receiving another unit of packed RBCs. Her hematologic profile today including platelets, pro time, PTT, fibrinogen, are all definitely improved which implies that the patient is recovering from DIC. Patient is hemodynamically stable, no other sites of bleeding noted today. Hemoglobin today is 6.0 WBC count is 6.8, electrolytes are normal BUN is normal creatinine is normal. Platelets are 70,000. Patient was reevaluated today on 07/25/2023, remains in the ICU, doing great, hemoglobin is now 7.9, her hematologic profile today is excellent, all is improving. No further episodes of vaginal bleeding, hence the patient could be transferred out of the ICU, as a matter fact patient could be considered for discharge if cleared by hematology/oncology and gynecology. Objective - Vital Signs Vital signs: Vital Signs Temp 98.2 F 07/25/23 08:00 Pulse 84 07/25/23 09:00 Resp 16 07/25/23 09:00 BP 105/64 07/25/23 10:00 Pulse Ox 95 07/25/23 09:00 FiO2 Intake & Output 07/24/23 07/25/23 07/25/23 18:59 06:59 18:59 Intake Total 340 625 0 Output Total 420 0 Balance -80 625 0 Weight 66.5 kg Intake: IV 30 0 Lactated Ringers 1,000 ml 30 0 @ 100 mls/hr IV .Q10H VICTOR HUGO Rx#:[id number] Oral 625 Blood Product 310 Rc As-1 Unit 310 [id number] Output: Urine 420 0 Other: # Voids 0 1 1 - Exam General: The patient is awake and alert, in no distress Skin: Slightly dry mucous membranes noted Eye: Pupils are equal, round and reactive to light, extra-ocular movements are intact; pale conjunctivae noted no icterus. Ears, nose, mouth and throat: There are moist mucous membranes and no oral lesions. Neck: The neck is supple, there is no tenderness or JVD. Cardiovascular: There is a regular rate and rhythm. No murmur, rub or gallop is appreciated. Respiratory: Clear throughout. No crackles rhonchi or wheezes Gastrointestinal: Soft, non-distended, non-tender abdomen without masses or organomegaly noted. There is no rebound or guarding present. Bowel sounds are unremarkable. Back: There is no tenderness to palpation in the midline. There is no obvious deformity. Musculoskeletal: Normal ROM, no tenderness, There is no pedal edema. There is no calf tenderness or swelling. No cords were appreciated. Neurological: CN II-XII intact, Cranial nerves III through XII are intact. T here are no obvious motor or sensory deficits. Coordination appears grossly intact. Speech is normal. Psychiatric: Cooperative, appropriate mood & affect, normal judgment. - Labs CBC & Chem 7: 07/25/23 04:14 07/25/23 04:14 Labs: Abnormal Lab Results - Last 24 Hours (Table) 07/24/23 07/24/23 07/25/23 Range/Units 13:12 13:12 04:14 RBC 2.56 L 2.58 L (3.80-5.40) m/uL Hgb 7.8 L D 7.9 L (11.4-16.0) gm/dL Hct 22.7 L 22.5 L (34.0-46.0) % Plt Count 76 L 91 L (150-450) k/uL APTT 21.5 L (22.0-30.0) sec Chloride (98-107) mmol/L Calcium (8.4-10.2) mg/dL 07/25/23 Range/Units 04:14 RBC (3.80-5.40) m/uL Hgb (11.4-16.0) gm/dL Hct (34.0-46.0) % Plt Count (150-450) k/uL APTT (22.0-30.0) sec Chloride 112 H (98-107) mmol/L Calcium 7.6 L (8.4-10.2) mg/dL Assessment and Plan Assessment: Impression: Acute vaginal bleeding, resolved Acute DIC with thrombocytopenia, elevated pro time, elevated PTT, and low fibrinogen level. Most likely secondary to incomplete and retention of products of recent , resolved Acute blood loss anemia, secondary to above patient received so far 3 units of packed RBCs Recommendation: Patient out of the ICU to a regular medical floor Consider even discharge planning if cleared by gynecology and hematology on the case Time with Patient: Less than 30
== END 2023-07-25 12:51 | disposition home or self-care (01) | DRG 543 ==
LOC: EC 00:05 → 5NMEDONC 03:14 → 2SICU 06:08
PROVIDERS: ADMIT Obstetrics & Gynecology; ATTEND Obstetrics & Gynecology
PROC: 30233N1 Transfusion of Nonautologous Red Blood Cells into Peripheral Vein, Percutaneous Approach (ICD-10-PCS; 2023-07-23)
PROC: 30233K1 Transfusion of Nonautologous Frozen Plasma into Peripheral Vein, Percutaneous Approach (ICD-10-PCS; 2023-07-23)
PROC: 30233M1 Transfusion of Nonautologous Plasma Cryoprecipitate into Peripheral Vein, Percutaneous Approach (ICD-10-PCS; 2023-07-23)
PROC: 10A07ZZ Abortion of Products of Conception, Via Natural or Artificial Opening (ICD-10-PCS; principal; 2023-07-23 03:41)
PROC: 0U7C7ZZ Dilation of Cervix, Via Natural or Artificial Opening (ICD-10-PCS; principal; 2023-07-23 03:41)
DX: O03.1 Delayed or excessive hemorrhage following incomplete spontaneous abortion (principal); D62 Acute posthemorrhagic anemia; F17.200 Nicotine dependence, unspecified, uncomplicated; F11.11 Opioid abuse, in remission; F17.290 Nicotine dependence, other tobacco product, uncomplicated; F32.A Depression, unspecified; F41.9 Anxiety disorder, unspecified; K06.8 Other specified disorders of gingiva and edentulous alveolar ridge; R11.0 Nausea; N93.8 Other specified abnormal uterine and vaginal bleeding; O99.12 Other diseases of the blood and blood-forming organs and certain disorders involving the immune mechanism complicating childbirth; O99.334 Smoking (tobacco) complicating childbirth; O99.341 Other mental disorders complicating pregnancy, first trimester; O99.344 Other mental disorders complicating childbirth; Z3A.13 13 weeks gestation of pregnancy
CPT/HCPCS: 36415; 76856; 80048; 80053; 83735; 84702; 85025; 85027; 85384; 85610; 85730; 86850; 86870; 86880; 86900; 86901; 86920; 88305; 96360; 96361; 99285